=== PATIENT | male | born 1950 | race Caucasian/White ===

== ENCOUNTER 2019-11-01 03:26 | Emergency (ER) | payer MEDICARE, SELFPAY ==
--- NOTE | ~2019-11-01 | CT_ITS ---
EXAMINATION: CT facial bones wo con DATE: 11/01/2019 04:45 INDICATION: Facial pain after trauma TECHNIQUE: Computed tomography (CT) of the facial bones was performed without intravenous contrast. T he dose-length product was 351.61 mGy-cm. Automated exposure control and iterative reconstruction maverick hnique were employed. COMPARISON: None FINDINGS: There is mild right frontal and/facial soft tissue swelling with gas. No acute maxillofacia l fracture is identified. Mild mucosal thickening of the maxillary sinuses. Mandible intact. Zygomati c arches are normal. Pterygoid plates within normal limits. IMPRESSION: 1. No acute maxillofacial fracture. Reviewed, dictated and finalized at location A.
--- NOTE | ~2019-11-01 | CT_ITS ---
EXAMINATION: CT brain wo con DATE: 11/01/2019 04:46 INDICATION: Right facial swelling and syncope. Head injury. TECHNIQUE: Computed tomography (CT) of the head was performed without intravenous contrast. The dose- length product was 605.33 mGy-cm. Automated exposure control and iterative reconstruction technique w ere employed. COMPARISON: None FINDINGS: There is right facial soft tissue swelling and gas. No acute intracranial hemorrhage, infar ction, mass or mass effect. There are scattered mild periventricular and subcortical white matter rubén nges, most likely related to small vessel ischemic disease (microangiopathy). No ventriculomegaly or midline shift. Basilar cisterns are patent. Mild mucosal thickening of the ethmoid sinuses. Mastoids are pneumatized. No depressed skull fractures. IMPRESSION: 1. No acute intracranial abnormality. Reviewed, dictated and finalized at location A.
[2019-11-01 03:26] VITALS: BP 155/84; PULSE 72; RESP 16; TEMP 36.8; O2SAT 98
--- NOTE | 2019-11-01 04:23 | ECG_ITS ---
Measurements Intervals [place] Rate: 59 P: 56 NV: 141 QRS: 41 QRSD: 113 T: 16 QT: 431 QTc: 429 Interpretive Statements SINUS BRADYCARDIA CONSIDER ANTEROLATERAL INFARCT, AGE INDETERMINATE INFERIOR INFARCT, AGE INDETERMINATE ABNORMAL ECG Electronically Signed On 11-01-2019 7:42:19 CDT by Jose Manuel Nguyen D.O.
--- NOTE | 2019-11-01 04:24 | ED.FALL ---
HPI - Fall General Chief Complaint: Fall Stated Complaint: poss syncope Time Seen by Provider: 11/01/19 04:17 Source: patient Mode of arrival: EMS Limitations: no limitations History of Present Illness HPI Narrative: This patient is a 68 year old male who present for evaluation of right forehead laceration s/p fall. Patient states he started coughing due to accidently choking on coffee. As he was leaning over to cough he became dizzy and he states he woke up on the floor so he thinks he passed out. He was found to a right forehead laceration that he was able to get the bleeding under control. He has significant swelling to right side of his face. He denies vision difficulty. He denies any other pain or injuries. He takes aspirin daily . Related Data Allergies Allergy/AdvReac Type Severity Reaction Status Date / Time No Known Allergies Allergy Verified 11/01/19 06:59 Review of Systems Review of Systems: All systems reviewed & are unremarkable except as noted in HPI and below Constitutional: Constitutional: Denies chills and Denies fever(s) Eyes: Eyes: Denies change in vision and Denies photophobia Cardiovascular: Cardiovascular: Denies chest pain Respiratory: Respiratory: Reports cough, Denies dyspnea and Denies wheezing Gastrointestinal: Gastrointestinal: Denies abdominal pain, Denies nausea and Denies vomiting Neurologic: Reports dizziness, Reports syncope and Denies focal weakness PMF Past Medical History Medical History (Updated 11/01/19 @ 06:53 by Phuong Rangel MD) Hypertension Surgical History Surgical History (Updated 11/01/19 @ 04:25 by Phuong Rangel MD) H/O cardiac catheterization Social History Social History Smoking status: Smoker, status unknown Alcohol intake: current Exam Const: General: alert Orientation/consciousness: patient oriented x3 HENMT: Head: other (right lateral forehead, zygomatic hematoma with linear laceration) Mouth: Yes Normal oral and palatal mucosa present, Yes lip normal and Yes oropharynx normal Eyes: Pupils: Equal, round and reactive pupils present EOM: EOMs intact bilaterally Other: right periorbital ecchymosis Neck: Neck: normal visual inspection Chest: Chest palpation & inspection: normal inspection of the chest Resp: Effort & Inspection: normal respiratory effort, no retractions and no use of accessory muscles Auscultation: clear to auscultation bilaterally Cardio: Rate: regular rate Rhythm: regular rhythm Heart sounds: no murmurs GI: GI Palp: Yes Soft to palpation, No Tenderness to palpation present (GI) and No Guarding due to palpation present (GI) Auscultation: normal bowel sounds Neuro: General: patient oriented x3, moves all extremities and CN's II-XI intact bilaterally Extrem: General: normal to inspection Psych: Mental Status: mental status grossly normal Affect: normal affect Course Consultations Consultation #1: I Discussed case with Dr. Vela of NSGY at [facility] and recommends sending to ER and they will see patient to repeat scan. Dr. Bravo accepts in ER. Date: 11/01/19 Time: 05:52 Vital Signs Vital signs: Vital Signs Temperature 98.2 F 11/01/19 03:26 Pulse Rate 72 11/01/19 03:26 Respiratory Rate 16 11/01/19 03:26 Blood Pressure 155/84 H 11/01/19 03:26 Pulse Oximetry 98 11/01/19 03:26 Temperature 98.2 F 11/01/19 03:26 Pulse Rate 64 11/01/19 05:34 Respiratory Rate 14 11/01/19 05:34 Blood Pressure 135/66 11/01/19 05:34 Pulse Oximetry 99 11/01/19 05:34 Procedures Laceration Laceration 1: Date: 11/01/19 Time: 04:45 Site: face Side (If applicable): right Size (cm): 1.5 Description: linear ====== Skin Level ====== Skin layer closed with: dermabond ====== Subcutaneous Layer ====== ====== Muscle Layer ====== ====== Tendon Layer ====== MDM - Fall Lab Data Attestation: I reviewed the patient's
[2019-11-01 05:11] LABS: Basophils Absolute Auto 0.1 K/mm3 (0.0-0.1); Basophils Percent Auto 0.7 % (0.2-1.2); Eosinophils Absolute Auto 0.4 K/mm3 (0-0.3); Eosinophils Percent Auto 3.8 % (0-4.4); Hematocrit 42.7 % (42.0-52.0); Hemoglobin 14.8 g/dL (14.0-18.0); Immature Granulocyte Absolute 0.06 K/mm3 (0.00-0.031); Immature Granulocyte Percent A 0.5 % (0-0.5); Lymphocytes Absolute Auto 2.21 K/mm3 (0.9-3.2); Lymphocytes Percent Auto 19.4 % (18.3-44.2); Mean Corpuscular HGB Conc 34.7 g/dl (32-36); Mean Corpuscular Hemoglobin 31.5 pg (26-34); Mean Corpuscular Volume 90.9 fl (80-100); Mean Platelet Volume 9.4 fl (7.4-10.4); Monocytes Absolute Auto 0.7 K/mm3 (0.1-0.6); Monocytes Percent Auto 6.1 % (2.6-8.5); Neutrophils Absolute Auto 7.9 K/mm3 (1.3-6.7); Neutrophils Percent Auto 69.5 % (45.5-73.1); Platelet Count Result 129 k/mm3 (150-375); Red Cell Distribution Width 11.8 % (11.5-14.5); White Blood Count 11.4 K/mm3 (4.5-10.0)
[2019-11-01 05:22] LABS: INR 1.1; Prothrombin Time 13.4 Seconds (11.1-14.7)
[2019-11-01 05:23] LABS: Alanine Aminotransferase 15 U/L (4-50); Albumin Level 4.1 g/dL (3.5-5.1); Alkaline Phosphatase 37 U/L (38-126); Anion Gap 7 mmol/L (8-16); Aspartate Amino Transferase 20 U/L (17-59); Bilirubin,Total 0.8 mg/dL (0.2-1.3); Blood Urea Nitrogen 9 mg/dL (9-20); Calcium 8.7 mg/dL (8.4-10.2); Carbon Dioxide 25 mmol/L (22-30); Chloride 101 mmol/L (98-107); Estimated CRCL calculation 94 ml/min; Estimated Glomerular Filt Rate > 60; Glucose 120 mg/dL (75-110); Partial Thromboplastin Time 28.7 SECONDS (22.3-36.8); Potassium 4.6 mmol/L (3.4-5.0); Sodium 133 mmol/L (137-145)
[2019-11-01 05:34] VITALS: BP 135/66; PULSE 64; RESP 14; O2SAT 99
--- NOTE | 2019-11-01 06:36 | PC.NURSE ---
[facility] contacted for transfer eta [id number]
--- NOTE | 2019-11-01 07:00 | PC.NURSE ---
report to cody adams @ [facility]
== END 2019-11-01 07:15 | disposition short-term general hospital (02) ==
PROVIDERS: Emergency Provider General Practice; PCP Family Medicine
DX: S06.5X1A Traumatic subdural hemorrhage with loss of consciousness of 30 minutes or less, initial encounter (principal); S01.81XA Laceration without foreign body of other part of head, initial encounter; I10 Essential (primary) hypertension; R00.1 Bradycardia, unspecified; R94.31 Abnormal electrocardiogram [ECG] [EKG]; W18.39XA Other fall on same level, initial encounter
CPT/HCPCS: 12011; 36415; 70450; 70486; 80053; 85025; 85610; 85730; 93005; 99285

== ENCOUNTER 2021-10-05 10:51 | Day surgery (SDC) | payer MEDICARE, SELFPAY ==
[2021-09-28 13:50] VITALS: BMI 27.3
--- NOTE | 2021-10-05 07:24 | WPDANESEPPF ---
Anes - Initial Pre Proc Eval Procedure: Operation Date: 10/05/21 12:00 Proposed Procedures p Cataract Extraction with Lens Implant-Right Eye - Keon Izquierdo MD Date/Time: 10/05/21 07:24 Surgeon: Keon Izquierdo MD Pre Op Diagnosis: H25.12 Patient Data Age: 70 Gender: M Height: 1.8 m Weight: 89 kg Allergies Allergy/AdvReac Type Severity Reaction Status Date / Time No Known Allergies Allergy Verified 10/05/21 11:52 Home Medications Medication Instructions Recorded Confirmed Type aspirin 81 mg tablet,delayed 81 mg PO DAILY 06/28/21 09/28/21 History release (Adult Low Dose Aspirin) ezetimibe 10 mg-rosuvastatin 10 mg 1 tablet PO DAILY 06/28/21 09/28/21 History tablet metformin 1,000 mg tablet 1,000 mg PO BID 06/28/21 09/28/21 History metoprolol tartrate 25 mg tablet 25 mg PO TID 06/28/21 09/28/21 History rosuvastatin 20 mg tablet 20 mg PO DAILY 06/28/21 09/28/21 History Patient hx anesthesia problems: none Family hx anesthesia problems: none Results Review: All pre-operative results and documents have been reviewed as part of the pre-operative evaluation. [facility] Past Medical History Medical History (Updated 10/05/21 @ 07:25 by Rodríguez Mckeon DO) CAD (coronary artery disease) COPD (chronic obstructive pulmonary disease) Diabetes type 2, controlled History of heart attack Hypertension Rotator cuff tendonitis Surgical History Surgical History (Updated 07/01/21 @ 14:42 by Clementina Ozuna MA) H/O cardiac catheterization Broken Heart , 1994, Dr. Gillespie Heart attack (stent) , 1998, Dr. Barnett Social History Social History (Updated 07/01/21 @ 14:46 by Clementina Ozuna MA) Smoking packs per day: 1 Smoking cigarettes per day: 20.0 Years smoked: 30 Smoking pack-years: 30.00 Smoking status: Current every day smoker Tobacco type: cigarettes Second hand tobacco smoke exposure: No Alcohol intake: current Drinks per week: 3 Substance use: never Substance use type: does not use Living arrangements: with family Gender identity (if verbalized by the patient): Male Spiritual care concerns: No Anes - Eval Final PreProcedure Day of Procedure 10/05/21 07:24 Patient weight: overweight Heart: regular rate and rhythm Lungs: clear to auscultation and normal air movement Airway: Mallampati scale class II Neurological: alert and oriented Last oral intake: >/= 8 hours ASA classification: III Emergent: no Anesthetic plan: proceed Anesthesia type and monitoring: monitored anesthesia care and standard monitoring Results Review: All pre-operative results and documents have been reviewed as part of the pre-operative evaluation. Informed Consent: The patient's anesthetic plan and its attendant risks and benefits were discussed with the patient/family/POA. Questions were solicited and answers provided to the satisfaction of the patient/family/POA.
--- NOTE | 2021-10-05 09:47 | WPDHPUPDATE1 ---
History and Physical Update Update Date/Time: 10/05/21 09:47 History and Physical has been reviewed, including an updated exam of the patient. There are NO changes in the patient's condition. Risks, benefits, and alternatives have been discussed and questions answered. Patient agrees to proceed with procedure.
[2021-10-05 11:20] VITALS: BP 130/72; PULSE 74; RESP 20; TEMP 36.8; O2SAT 99
[2021-10-05 11:50] LABS: Glucose Point of Care 102 mg/dl (65-105)
[2021-10-05] MEDS: OFLOXACIN 0.3% OPHTH SOLN 5 ML BTL 1 DROP AFFCTD EYE (11:52)
[2021-10-05] MEDS: TETRACAINE HCL 0.5% OPHTH SOLN 4 ML BTL 1 DROP AFFCTD EYE ×3 (11:53→12:03)
[2021-10-05 12:00] VITALS: BMI 24.5
[2021-10-05] MEDS: LIDOCAINE HCL 2% JELLY 5 ML TUBE 1 APPLIC AFFCTD EYE (12:50)
[2021-10-05] MEDS: HOME MEDICATION 1 EACH AFFCTD EYE (13:00)
[2021-10-05] MEDS: LIDOCAINE HCL 1% PF INJ 5 ML VIAL 1 ML INTRAOCULA (13:01)
[2021-10-05 13:20] VITALS: BP 130/71; PULSE 66; RESP 16; O2SAT 98
--- NOTE | 2021-10-05 13:24 | W.PM.PROC2 ---
Procedure Note - Detailed Date of Procedure 10/05/21 Pre-op Diagnosis H25.12 Post-op Diagnosis Same Procedure Performed Cataract Extraction (by Phacoemulsification) and lntraocular Lens Implant RIGHT eye Surgeon Keon Izquierdo MD Description of Procedure The eye was anesthetized with topical 0.75% bupivacaine. After intravenous sedation and placement of monitors, the patient was prepped and draped in the usual sterile manner. A lid speculum was placed. A paracentesis was made, and preservative free 1% lidocaine was instilled in the anterior chamber. The anterior chamber was then filled with Viscoat viscoelastic. A kobi keratome was used to create the wound. Continuous tear anterior capsulotomy was performed. The lens was hydro dissected before being removed with phacoemulsification. The remaining lenticular cortex was removed with aspiration. The capsular bag was polished and filled with viscoelastic material. An intraocular lens was chosen, inspected, irrigated and placed within the capsular bag where it was seen to be centered and stable. The viscoelastic material was aspirated. The wound was closed and found to be watertight. Ciloxan drops were placed in the eye. The speculum was removed. A Muñoz shield was applied. The patient tolerated the procedure well and left the operating room in satisfactory condition. Implants See chart Complications None Condition Stable Disposition Same day
--- NOTE | 2021-10-05 13:27 | WPDANESPN ---
Anes - Prog Note Post-Op Date/Time: 10/05/21 13:27 Vital Signs: Last Vital Signs Temp 36.8 C 10/05/21 11:20 Pulse 74 10/05/21 11:20 Resp 20 10/05/21 11:20 BP 130/72 10/05/21 11:20 Pulse Ox 99 10/05/21 11:20 O2 Del Method Room Air 10/05/21 11:20 Pain Score (VAS): 0 10/05/21 11:47 POC Capillary Glucose 102 Patient Feedback: Patient satisfied with anesthetic care.
[2021-10-05] MEDS: acetaZOLAMIDE TAB 250 MG TABLET PO (13:30)
--- NOTE | 2021-11-09 10:19 | WPDHPUPDATE1 ---
History and Physical Update Update Date/Time: 11/09/21 10:19 History and Physical has been reviewed, including an updated exam of the patient. There are NO changes in the patient's condition. Risks, benefits, and alternatives have been discussed and questions answered. Patient agrees to proceed with procedure. Physical exam not done on the day of the procedure.
== END 2021-10-05 13:36 | disposition home or self-care (01) ==
PROVIDERS: PCP Family Medicine; Visit Provider Student in an Organized Health Care Education/Training Program
PROC: (CPT 66983; principal; 2021-10-05 12:00)
DX: H25.11 Age-related nuclear cataract, right eye (principal)
CPT/HCPCS: 66984

== ENCOUNTER 2021-11-02 10:53 | Day surgery (SDC) | payer MEDICARE, SELFPAY ==
--- NOTE | 2021-11-01 20:58 | WPDANESEPPF ---
Anes - Initial Pre Proc Eval Procedure: Operation Date: 11/02/21 12:00 Proposed Procedures p Cataract Extraction with Lens Implant-Left Eye - Keon Izquierdo MD <Rodríguez Mckeon DO - Last Filed: 11/14/21 15:40> Date/Time: 11/01/21 20:58 <Rodríguez Mckeon DO - Last Filed: 11/14/21 15:40> Surgeon: Keon Izquierdo MD <Rodríguez Mckeon, DO - Last Filed: 11/14/21 15:40> Pre Op Diagnosis: H25.12 <Rodríguez Mckeon DO - Last Filed: 11/14/21 15:40> Patient Data Age: 70 Gender: M Height: Weight: <Rodríguez Mckeon DO - Last Filed: 11/14/21 15:40> Allergies Allergy/AdvReac Type Severity Reaction Status Date / Time No Known Allergies Allergy Verified 11/02/21 11:18 <Rodríguez Mckeon DO - Last Filed: 11/14/21 15:40> Home Medications Medication Instructions Recorded Confirmed Type aspirin 81 mg tablet,delayed 81 mg PO DAILY 06/28/21 11/02/21 History release (Adult Low Dose Aspirin) ezetimibe 10 mg-rosuvastatin 10 mg 1 tablet PO DAILY 06/28/21 11/02/21 History tablet metformin 1,000 mg tablet 1,000 mg PO BID 06/28/21 11/02/21 History metoprolol tartrate 25 mg tablet 25 mg PO TID 06/28/21 11/02/21 History rosuvastatin 20 mg tablet 20 mg PO DAILY 06/28/21 11/02/21 History <Rodríguez Mckeon DO - Last Filed: 11/14/21 15:40> Patient hx anesthesia problems: none <Maximo Stratton MD - Last Filed: 11/02/21 11:29> Family hx anesthesia problems: none <Maximo Stratton MD - Last Filed: 11/02/21 11:29> Results Review: All pre-operative results and documents have been reviewed as part of the pre-operative evaluation. <Rodríguez Mckeon DO - Last Filed: 11/14/21 15:40> [facility] Past Medical History Medical History: Medical History CAD (coronary artery disease) COPD (chronic obstructive pulmonary disease) Diabetes type 2, controlled History of heart attack Hypertension Rotator cuff tendonitis <Rodríguez Mckeon DO - Last Filed: 11/14/21 15:40> Surgical History Surgical History: Surgical History H/O cardiac catheterization Broken Heart , 1994, Dr. Gillespie Heart attack (stent) , 1998, Dr. Barnett <Rodríguez Mckeon, DO - Last Filed: 11/14/21 15:40> Social History Social History: Social History Smoking packs per day: 1 Smoking cigarettes per day: 20.0 Years smoked: 30 Smoking pack-years: 30.00 Smoking status: Current every day smoker Tobacco type: cigarettes Second hand tobacco smoke exposure: No Alcohol intake: current Drinks per week: 3 Substance use: never Substance use type: does not use Living arrangements: with family Gender identity (if verbalized by the patient): Male Spiritual care concerns: No <Rodríguez Mckeon DO - Last Filed: 11/14/21 15:40> Anes - Eval Final PreProcedure Day of Procedure 11/01/21 20:58 <Rodríguez Mckeon DO - Last Filed: 11/14/21 15:40> Patient weight: obese <Rodríguez Mckeon DO - Last Filed: 11/14/21 15:40> Heart: regular rate and rhythm <Rodríguez Mckeon DO - Last Filed: 11/14/21 15:40> Lungs: clear to auscultation and normal air movement <Rodríguez Mckeon DO - Last Filed: 11/14/21 15:40> Airway: Mallampati scale class II <Rodríguez Mckeon DO - Last Filed: 11/14/21 15:40> Neurological: alert and oriented <Rodríguez Mckeon DO - Last Filed: 11/14/21 15:40> Last oral intake: >/= 8 hours <Rodríguez Mckeon DO - Last Filed: 11/14/21 15:40> ASA classification: III <Rodríguez Mckeon DO - Last Filed: 11/14/21 15:40> Emergent: no <Rodríguez Mckeon DO - Last Filed: 11/14/21 15:40> Anesthetic plan: proceed <Rodríguez
--- NOTE | 2021-11-02 09:44 | WPDHPUPDATE1 ---
History and Physical Update Update Date/Time: 11/02/21 09:44 History and Physical has been reviewed, including an updated exam of the patient. There are NO changes in the patient's condition. Risks, benefits, and alternatives have been discussed and questions answered. Patient agrees to proceed with procedure.
[2021-11-02 11:15] VITALS: BP 100/64; PULSE 82; RESP 16; TEMP 36.9; O2SAT 98
[2021-11-02] MEDS: TETRACAINE HCL 0.5% OPHTH SOLN 4 ML BTL 1 DROP AFFCTD EYE ×3 (11:20→11:30)
[2021-11-02] MEDS: OFLOXACIN 0.3% OPHTH SOLN 5 ML BTL 1 DROP AFFCTD EYE (11:20)
[2021-11-02 11:35] LABS: Glucose Point of Care 95 mg/dl (65-105)
[2021-11-02 11:40] VITALS: BMI 24.5
[2021-11-02] MEDS: LIDOCAINE HCL 2% JELLY 5 ML TUBE 1 APPLIC AFFCTD EYE (12:31)
[2021-11-02] MEDS: LIDOCAINE HCL 1% PF INJ 5 ML VIAL 1 ML INTRAOCULA (12:38)
[2021-11-02] MEDS: HOME MEDICATION 1 EACH AFFCTD EYE (12:50)
[2021-11-02] MEDS: NEOMYCIN/POLYMYXIN/DEXAMETH OP OINT 3.5 GM TUBE 1 APPLIC AFFCTD EYE (12:50)
[2021-11-02 12:54] VITALS: BP 110/68; PULSE 78; RESP 16; O2SAT 99
--- NOTE | 2021-11-02 12:54 | W.PM.PROC2 ---
Procedure Note - Detailed Date of Procedure 11/02/21 Pre-op Diagnosis H25.12 Post-op Diagnosis Same Procedure Performed Cataract Extraction (by Phacoemulsification) and lntraocular Lens Implant LEFT eye Surgeon Keon Izquierdo MD Description of Procedure The eye was anesthetized with topical 0.75% bupivacaine. After intravenous sedation and placement of monitors, the patient was prepped and draped in the usual sterile manner. A lid speculum was placed. A paracentesis was made, and preservative free 1% lidocaine was instilled in the anterior chamber. The anterior chamber was then filled with Viscoat viscoelastic. A kobi keratome was used to create the wound. Continuous tear anterior capsulotomy was performed. The lens was hydro dissected before being removed with phacoemulsification. The remaining lenticular cortex was removed with aspiration. The capsular bag was polished and filled with viscoelastic material. An intraocular lens was chosen, inspected, irrigated and placed within the capsular bag where it was seen to be centered and stable. The viscoelastic material was aspirated. The wound was closed and found to be watertight. Ciloxan drops were placed in the eye. The speculum was removed. A Muñoz shield was applied. The patient tolerated the procedure well and left the operating room in satisfactory condition. Implants See chart Complications None Condition Stable Disposition Same day
--- NOTE | 2021-11-02 13:08 | WPDANESPN ---
Anes - Prog Note Post-Op Date/Time: 11/02/21 13:08 Cardiovascular status: normal Respiratory status: normal Airway patency: baseline Mental status: baseline Post-Op hydration status: normal Vital Signs: Last Vital Signs Temp 36.9 C 11/02/21 11:15 Pulse 82 11/02/21 11:15 Resp 16 11/02/21 11:15 BP 100/64 11/02/21 11:15 Pulse Ox 98 11/02/21 11:15 O2 Del Method Room Air 11/02/21 11:15 Pain Score (VAS): 0 11/02/21 11:33 POC Capillary Glucose 95 Patient Feedback: Patient satisfied with anesthetic care.
== END 2021-11-02 13:22 | disposition home or self-care (01) ==
PROVIDERS: PCP Family Medicine; Visit Provider Student in an Organized Health Care Education/Training Program
PROC: (CPT 66983; principal; 2021-11-02 12:00)
DX: H25.12 Age-related nuclear cataract, left eye (principal)
CPT/HCPCS: 66984

== ENCOUNTER 2023-01-17 01:31 | Day surgery (SDC) | payer MEDICARE, SELFPAY ==
[2023-01-02 14:33] VITALS: BMI 26.3
--- NOTE | 2023-01-15 09:06 | SUR.PREOP ---
Patient called regarding upcoming procedure. Reviewed preop instructions, appointment times, and procedure prep.
--- NOTE | 2023-01-16 13:34 | PM.HPGS ---
History of Present Illness History of Present Illness Consent: Risks, benefits, and alternatives have been discussed and questions answered. Patient agrees to proceed with procedure. Chief complaint: hx colon polyps Narrative: Dean Tsai is a 72 year old male referred for colon cancer screening. He has history of polyps. Review of Systems Review of Systems: All systems reviewed & are unremarkable except as noted in HPI and below PMFSH Past Medical History Medical History CAD (coronary artery disease) COPD (chronic obstructive pulmonary disease) Diabetes type 2, controlled History of heart attack Hypertension Rotator cuff tendonitis Surgical History Surgical History H/O cardiac catheterization Broken Heart , 1994, Dr. Gillespie Heart attack (stent) , 1998, Dr. Barnett Social History Social History Smoking packs per day: 1 Smoking cigarettes per day: 20.0 Years smoked: 50 Smoking pack-years: 50.00 Smoking status: Current every day smoker Tobacco type: cigarettes Second hand tobacco smoke exposure: No Alcohol intake: current Drinks per week: 6 Substance use: never Substance use type: does not use Living arrangements: with family Occupation/Education: retired Gender identity (if verbalized by the patient): Male Spiritual care concerns: No Meds Home Medications and Allergies Home Medications Medication Instructions Recorded Confirmed Type aspirin 81 mg tablet,delayed 81 mg PO DAILY 06/28/21 01/17/23 History release (Adult Low Dose Aspirin) metformin 1,000 mg tablet 1,000 mg PO BID 06/28/21 01/17/23 History metoprolol tartrate 25 mg tablet 12.5 mg PO TID 06/28/21 01/17/23 History ezetimibe 10 mg tablet 10 mg PO DAILY 01/02/23 01/17/23 History rosuvastatin 20 mg tablet 20 mg PO DAILY 01/02/23 01/17/23 History Allergies Allergy/AdvReac Type Severity Reaction Status Date / Time No Known Allergies Allergy Verified 01/17/23 06:18 Exam Const: General: alert Orientation/consciousness: patient oriented x3 Resp: Auscultation: clear to auscultation bilaterally Cardio: Rhythm: regular rhythm GI: GI Palp: Yes Soft to palpation and No Tenderness to palpation present (GI) Neuro: General: patient oriented x3 Assessment and Plan Assessment and plan (1) Colon cancer screening: Code(s): Z12.11 - Encounter for screening for malignant neoplasm of colon Status: Acute Assessment and Plan: Colonoscopy with possible biopsy or polypectomy or cautery or injection of substances.
[2023-01-17 06:20] VITALS: BP 138/63; PULSE 66; RESP 18; TEMP 36.1; O2SAT 100; BMI 24.8
[2023-01-17] MEDS: LACTATED RINGERS 1,000 ML 150 ML IV CONT (06:23)
[2023-01-17 06:39] LABS: Glucose Point of Care 97 mg/dl (65-105)
--- NOTE | 2023-01-17 07:20 | WPDANESEPPF ---
Anes - Initial Pre Proc Eval Procedure: Operation Date: 01/17/23 07:30 Proposed Procedures p Screening Colonoscopy - Jose Luis Alanis MD Date/Time: 01/17/23 07:20 Surgeon: Jose Luis Alanis MD Pre Op Diagnosis: hx colon polyps Patient Data Age: 72 Gender: M Height: 1.83 m Weight: 83.2 kg Last Vital Signs Temp 96.9 F L 01/17/23 06:20 Pulse 66 01/17/23 06:20 Resp 18 01/17/23 06:20 BP 138/63 01/17/23 06:20 Pulse Ox 100 01/17/23 06:20 O2 Del Method Room Air 01/17/23 06:20 Allergies Allergy/AdvReac Type Severity Reaction Status Date / Time No Known Allergies Allergy Verified 01/17/23 06:18 Home Medications Medication Instructions Recorded Confirmed Type aspirin 81 mg tablet,delayed 81 mg PO DAILY 06/28/21 01/17/23 History release (Adult Low Dose Aspirin) metformin 1,000 mg tablet 1,000 mg PO BID 06/28/21 01/17/23 History metoprolol tartrate 25 mg tablet 12.5 mg PO TID 06/28/21 01/17/23 History ezetimibe 10 mg tablet 10 mg PO DAILY 01/02/23 01/17/23 History rosuvastatin 20 mg tablet 20 mg PO DAILY 01/02/23 01/17/23 History Laboratory Tests 01/17/23 06:37 POC Capillary Glucose 97 mg/dl (65-105) Patient hx anesthesia problems: none Family hx anesthesia problems: none Results Review: All pre-operative results and documents have been reviewed as part of the pre-operative evaluation. [facility] Past Medical History Medical History CAD (coronary artery disease) COPD (chronic obstructive pulmonary disease) Diabetes type 2, controlled History of heart attack Hypertension Rotator cuff tendonitis Surgical History Surgical History H/O cardiac catheterization Broken Heart , 1994, Dr. Gillespie Heart attack (stent) , 1998, Dr. Barnett Social History Social History Smoking packs per day: 1 Smoking cigarettes per day: 20.0 Years smoked: 50 Smoking pack-years: 50.00 Smoking status: Current every day smoker Tobacco type: cigarettes Second hand tobacco smoke exposure: No Alcohol intake: current Drinks per week: 6 Substance use: never Substance use type: does not use Living arrangements: with family Occupation/Education: retired Gender identity (if verbalized by the patient): Male Spiritual care concerns: No Anes - Eval Final PreProcedure Day of Procedure 01/17/23 07:20 Patient weight: normal Heart: regular rate and rhythm Lungs: clear to auscultation Airway: Mallampati scale class II Neurological: alert and oriented Last oral intake: >/= 8 hours ASA classification: III Emergent: no Anesthetic plan: proceed Anesthesia type and monitoring: general GIVS and standard monitoring Results Review: All pre-operative results and documents have been reviewed as part of the pre-operative evaluation. Informed Consent: The patient's anesthetic plan and its attendant risks and benefits were discussed with the patient/family/POA. Questions were solicited and answers provided to the satisfaction of the patient/family/POA.
[2023-01-17 07:49] VITALS: BP 93/37; PULSE 79; RESP 23; O2SAT 100
[2023-01-17 07:59] VITALS: BP 116/61; PULSE 62; RESP 17; O2SAT 100
[2023-01-17 08:09] VITALS: BP 123/59; PULSE 60; RESP 22; O2SAT 100
== END 2023-01-17 08:20 | disposition home or self-care (01) ==
PROVIDERS: PCP Family Medicine; Visit Provider Internal Medicine Gastroenterology
PROC: 0DJD8ZZ Inspection of Lower Intestinal Tract, Via Natural or Artificial Opening Endoscopic (ICD-10-PCS; CPT 45378; principal; 2023-01-17 07:30)
DX: Z12.11 Encounter for screening for malignant neoplasm of colon (principal); J44.9 Chronic obstructive pulmonary disease, unspecified; E11.9 Type 2 diabetes mellitus without complications; I10 Essential (primary) hypertension; I25.10 Atherosclerotic heart disease of native coronary artery without angina pectoris; I25.2 Old myocardial infarction; F17.210 Nicotine dependence, cigarettes, uncomplicated; Z95.5 Presence of coronary angioplasty implant and graft; Z79.82 Long term (current) use of aspirin; Z79.84 Long term (current) use of oral hypoglycemic drugs; Z86.010 Personal history of colon polyps
CPT/HCPCS: G0105; 82948; J7120

== ENCOUNTER 2023-10-16 14:18 | Emergency (ER) | payer MEDICARE, SELFPAY ==
--- NOTE | ~2023-10-16 | XR_ITS ---
XR ankle RT min 3V 10/16/2023 15:13 Indication: Right ankle pain after injury Procedure: 4 views right ankle Comparison: No prior studies for comparison. Findings: Moderate diffuse soft tissue swelling. Ankle mortise intact. There is a comminuted nondispl aced extra-articular fracture of the calcaneus. Impression: 1: Nondisplaced comminuted extra-articular fracture of the calcaneus. Consider correlation with CT. Reviewed, dictated and finalized at location B. Impression: 1: Nondisplaced comminuted extra-articular fracture of the calcaneus. Consider correlation with CT.
[2023-10-16 14:27] VITALS: BP 145/77; PULSE 76; RESP 16; TEMP 36.6; O2SAT 100
--- NOTE | 2023-10-16 14:31 | ED.LOWEXIN ---
HPI - Extremity Injury (Lower) General Chief Complaint: Extremity Injury, Lower Stated Complaint: right ankle injury Time Seen by Provider: 10/16/23 14:30 Focused HPI: GENERAL: Well-appearing, well-nourished, and in no acute distress. HEAD: Normocephalic, atraumatic. CHEST: Clear to auscultation. No respiratory distress. HEART: Regular rate and rhythm. NEURO: Alert and oriented x3. Patient screened in triage and initial orders placed. Additional care and disposition to be based upon diagnostic testing and treatment. Source: patient Mode of arrival: ambulatory Limitations: no limitations Related Data Home Medications Medication Instructions Recorded Confirmed aspirin 81 mg tablet,delayed 81 mg PO DAILY 06/28/21 01/17/23 release (Adult Low Dose Aspirin) metformin 1,000 mg tablet 1,000 mg PO BID 06/28/21 01/17/23 metoprolol tartrate 25 mg tablet 12.5 mg PO TID 06/28/21 01/17/23 ezetimibe 10 mg tablet 10 mg PO DAILY 01/02/23 01/17/23 rosuvastatin 20 mg tablet 20 mg PO DAILY 01/02/23 01/17/23 Allergies Allergy/AdvReac Type Severity Reaction Status Date / Time No Known Allergies Allergy Verified 01/17/23 06:18 Review of Systems Review of Systems: CONSTITUTIONAL: Denies fever, chills, or sweats. EYES: Denies visual changes, redness, or discharge. ENT: Denies rhinorrhea, congestion, sore throat, or otalgia. CARDIOVASCULAR: Denies chest pain, palpitations, or edema. RESPIRATORY: Denies cough or dyspnea. GASTROINTESTINAL: Denies abdominal pain, nausea, vomiting, or diarrhea. GENITOURINARY: Denies dysuria or hematuria. SKIN: Denies rash or itching. MUSCULOSKELETAL: Denies back pain or myalgia. NEUROLOGIC: Denies headache, numbness, or weakness. PSYCHIATRIC: Denies anxiety or depression. FOR[facility]LY [facility] Past Medical History Medical History CAD (coronary artery disease) COPD (chronic obstructive pulmonary disease) Diabetes type 2, controlled History of heart attack Hypertension Rotator cuff tendonitis Surgical History Surgical History H/O cardiac catheterization Broken Heart , 1994, Dr. Gillespie Heart attack (stent) , 1998, Dr. Barnett Social History Social History Smoking packs per day: 1 Smoking cigarettes per day: 20.0 Years smoked: 50 Smoking pack-years: 50.00 Smoking status: Current every day smoker Tobacco type: cigarettes Second hand tobacco smoke exposure: No Alcohol intake: current Drinks per week: 6 Substance use: never Substance use type: does not use Living arrangements: with family Occupation/Education: retired Gender identity (if verbalized by the patient): Male Spiritual care concerns: No Comments At the time of my signature, I reviewed and agree with the nursing past medical, surgical, social, and family history. There is no relevant family history pertinent to the patient complaint. Exam Narrative: General: Well-developed, well nourished, in no apparent distress Head: Normocephalic, atraumatic. Cardio: Regular rate and rhythm, s1 and s2 normal, no murmur appreciated. Resp: Clear to auscultation bilaterally, no rhonchi, rales, wheezing or rubs. Musculoskeletal: No deformity,tender to palpation over the calcaneus, mild swelling over the calcaneus and the dorsal foot, grossly normal range of motion, muscle strength strong and equal, peripheral pulse strong, no edema, no cyanosis, normal gait and station Course Course Emergency Course: Portions of this record may have been created with voice recognition software. Vital Signs Vital signs: Vital Signs Temperature 36.6 C 10/16/23 14:27 Pulse Rate 76 10/16/23 14:27 Respiratory Rate 16 10/16/23 14:27 Blood Pressure 145/77 H 10/16/23 14:27 Pulse Oximetry 100 10/16/23 14:27 Oxygen Delivery Room Air
--- NOTE | 2023-10-16 15:56 | PC.NURSE ---
Right heel padded with fluff gauze, alcides wrap for compression & crutch training completed. Pt & voice understanding.
[2023-10-16 15:58] VITALS: BP 140/70; PULSE 74; RESP 16; TEMP 36.8; O2SAT 100
== END 2023-10-16 16:01 | disposition home or self-care (01) ==
LOC: ANHED 15:54
PROVIDERS: Emergency Provider Nurse Practitioner Family; PCP Family Medicine
DX: S92.054A Nondisplaced other extraarticular fracture of right calcaneus, initial encounter for closed fracture (principal); I25.10 Atherosclerotic heart disease of native coronary artery without angina pectoris; I25.2 Old myocardial infarction; I10 Essential (primary) hypertension; E11.9 Type 2 diabetes mellitus without complications; J44.9 Chronic obstructive pulmonary disease, unspecified; F17.210 Nicotine dependence, cigarettes, uncomplicated; W11.XXXA Fall on and from ladder, initial encounter
CPT/HCPCS: 73610; 99284

== ENCOUNTER 2024-08-23 10:46 | Emergency (ER) | payer MEDICARE, SELFPAY ==
[2024-08-23 10:50] VITALS: BP 134/58; PULSE 65; RESP 18; TEMP 36.4; O2SAT 100
--- NOTE | 2024-08-23 11:47 | ED_ITS ---
HPI - General Adult General Chief complaint: Wound/Laceration Stated complaint: dropped knife in his foot Time Seen by Provider: 08/23/24 11:17 History of Present Illness HPI narrative: This is a 73-year-old male presenting with a foot laceration. He dropped a scout professional sports knife on his left foot this morning. He has a 1 cm laceration to top his foot. No weakness the foot. No other injuries. Unknown last tetanus. Related Data Home Medications ?Medication ?Instructions ?Recorded ?Confirmed ?Last Taken ?Type aspirin 81 mg tablet,delayed 81 mg PO DAILY 06/28/21 11/27/23 1 Day Ago History release (Adult Low Dose Aspirin) ~11/01/21 metformin 1,000 mg tablet 1,000 mg PO BID 06/28/21 11/27/23 1 Day Ago History ~11/01/21 metoprolol tartrate 25 mg tablet 12.5 mg PO TID 06/28/21 11/27/23 01/17/23 History ezetimibe 10 mg tablet 10 mg PO DAILY 01/02/23 11/27/23 Unknown History rosuvastatin 20 mg tablet 20 mg PO DAILY 01/02/23 11/27/23 01/16/23 History Allergies Allergy/AdvReac Type Severity Reaction Status Date / Time No Known Allergies Allergy Verified 08/23/24 10:52 [facility] Past Medical History Medical History CAD (coronary artery disease) COPD (chronic obstructive pulmonary disease) Diabetes type 2, controlled History of heart attack Hypertension Rotator cuff tendonitis Surgical History Surgical History H/O cardiac catheterization Broken Heart, 1994, Dr. Gillespie Heart attack (stent), 1998, Dr. Barnett Social History Social History (Updated 11/27/23 @ 08:08 by SIMONE Fish) Smoking packs per day: 1 Smoking cigarettes per day: 20.0 Years smoked: 50 Smoking pack-years: 50.00 Smoking status: Current every day smoker Tobacco type: cigarettes Second hand tobacco smoke exposure: No Alcohol intake: current Drinks per week: 6 Substance use: never Substance use type: does not use Do You Feel Safe in your Home?: Yes Lack of Transportation: No Lack of Food: Never True Current Housing: I Have Housing Concerned About Future Housing: Decline to Answer Difficulty Paying Gas/Electric Bills: Decline to Answer Difficulty Paying for Meds: Decline to Answer Currently Unemployed: Decline to Answer Education: Decline to Answer Difficulty w/ Childcare or Family Care: Decline to Answer Living arrangements: with family Occupation/Education: retired 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 Head: atraumatic. EYES: EOMI, NOSE: Atraumatic NECK: Trachea midline RESPIRATORY: No increased rate of breathing CARDIOVASCULAR: RRR, ABDOMINAL: Non-distended MUSCULOSKELETAl: No obvious deformities NEURO: Alert. Moving 4/4 extremities SKIN:: 1 cm laceration to dorsal aspect of the left foot just proximal to the base of the great toe and 2nd phalanx. No involvement of the deeper structures. No functional deficits toe. PSYCHIATRIC: Normal affect Course Vital Signs Vital signs: Vital Signs Temperature 97.6 F 08/23/24 10:50 Pulse Rate 65 08/23/24 10:50 Respiratory Rate 18 08/23/24 10:50 Blood Pressure 134/58 L 08/23/24 10:50 Pulse Oximetry 100 08/23/24 10:50 Oxygen Delivery Room Air 08/23/24 10:50 Temperature 97.6 F 08/23/24 10:50 Pulse Rate 65 08/23/24 10:50 Respiratory Rate 18 08/23/24 10:50 Blood Pressure 134/58 L 08/23/24 10:50 Pulse Oximetry 100 08/23/24 10:50 Oxygen Delivery Room Air 08/23/24 10:50 Procedures Laceration Laceration 1: Date: 08/23/24 Time: 12:16 Site: lower extremity Side (If applicable): left Size (cm): 1 Description: linear Depth: simple, single layer Local Anesthetic: bupivacaine 0.25% Amount of anesthesia used (mL): 3 Pre-repair: wound explored and irrigated extensively ====== Skin Level ====== Skin layer closed with: nylon Size (cm): 4-0 Number of sutures: 3 Technique: simple, interrupted ====== Subcutaneous Layer ====== ====== Muscle Layer ====== ====== Tendon Layer ====== Medical Decision Making MDM Narrative Medical decision making narrative: -Course: 73-year-old male presenting with a laceration to the top his foot. This was repaired. Patient discharged primary care follow-up. Return in 10-14 days for suture removal. Return signs of infection. Given a Tdap booster. Vital Signs Vital Signs: Vital Signs Temperature 97.6 F 08/23/24 10:50 Pulse Rate 65 08/23/24 10:50 Respiratory Rate 18 08/23/24 10:50 Blood Pressure 134/58 L 08/23/24 10:50 Pulse Oximetry 100 08/23/24 10:50 Oxygen Delivery Room Air 08/23/24 10:50 Temperature 97.6 F 08/23/24 10:50 Pulse Rate 65 08/23/24 10:50 Respiratory Rate 18 08/23/24 10:50 Blood Pressure 134/58 L 08/23/24 10:50 Pulse Oximetry 100 08/23/24 10:50 Oxygen Delivery Room Air 08/23/24 10:50 Discharge Plan Discharge Clinical Impression: Laceration Patient Disposition: Home Condition: Stable Instructions: Antibiotic Form, Care For Your Stitches (ED) Additional Instructions: You were seen in the emergency department for laceration. This was repaired. Please follow-up with your primary care physician in 10-14 days for suture removal. Develop any new or worsening symptoms such as signs of infection, redness swelling increased pain return to the ED for re-evaluation. Patient Language: Canadian Prescriptions: No Action aspirin [Adult Low Dose Aspirin] 81 mg tablet,delayed release (DR/EC) 81 mg PO DAILY metoprolol tartrate 25 mg tablet 12.5 mg PO TID metformin 1,000 mg tablet 1,000 mg PO BID ezetimibe 10 mg Tablet 10 mg PO DAILY rosuvastatin 20 mg Tablet 20 mg PO DAILY Follow-up/Referrals: Mohit,MD Francisco [Primary Care Provider] -
[2024-08-23] MEDS: TETANUS,DIPHTHERIA,AC PERTUSSIS ADULT (0.5 ML) BOOSTRIX IM (12:29)
== END 2024-08-23 12:39 | disposition home or self-care (01) ==
PROVIDERS: Emergency Provider Emergency Medicine; PCP Family Medicine
DX: S91.312A Laceration without foreign body, left foot, initial encounter (principal); Z23 Encounter for immunization; I25.10 Atherosclerotic heart disease of native coronary artery without angina pectoris; I25.2 Old myocardial infarction; I10 Essential (primary) hypertension; J44.9 Chronic obstructive pulmonary disease, unspecified; E11.9 Type 2 diabetes mellitus without complications; F17.210 Nicotine dependence, cigarettes, uncomplicated; Z79.82 Long term (current) use of aspirin; Z79.84 Long term (current) use of oral hypoglycemic drugs; Z79.899 Other long term (current) drug therapy; W26.0XXA Contact with knife, initial encounter
CPT/HCPCS: 12001; 90471; 90715; 99282

== ENCOUNTER 2024-10-31 06:33 | Outpatient (CLI) | payer MEDICARE, SELFPAY ==
--- NOTE | ~2024-10-31 | CT_ITS ---
EXAMINATION: CT lung screening DATE: 10/31/2024 06:56 INDICATION: Cigarette smoker TECHNIQUE: Computed tomography (CT) of the chest was performed without intravenous contrast. Additional 3D reconstructions utilizing coronal maximum intensity projection (MIP) were performed. Automated exposure control and iterative reconstruction technique were employed. The dose-length product was 10 1.77 mGy-cm. COMPARISON: None FINDINGS: Normal anatomic variant azygos lobe and fissure. 3 mm nodule in the right middle lobe along the major fissure. Calcified nodules in the left lower lobe consistent with old granulomatous disease. Small metallic BBs, one in the posterior right lower lobe and the second in the soft tissues along the poste rior margin of the left 10th rib. Mild discoid atelectasis in the lingula. No pneumonia, pulmonary edema or pleural effusion. Heart size normal. Abscess chronic coronary artery calcification. No pericardial effusion. Thoracic aorta is normal in caliber. No pathologically enlarged thoracic lymphadenopathy. Visualized upper abdomen is unremarkable. Mild thoracic spondylosis. Mild chronic appearing superior endplate compression fracture at T10. IMPRESSION: 1. . Lung-RADS category 2: Benign appearance or behavior. Continue annual screening with noncontrast low-dose chest CT in 12 months. Reviewed, dictated and finalized at location A. IMPRESSION: 1. . Lung-RADS category 2: Benign appearance or behavior. Continue annual scree priyank with noncontrast low-dose chest CT in 12 months.
== END 2024-10-31 06:34 | disposition home or self-care (01) ==
PROVIDERS: PCP Family Medicine; Visit Provider Family Medicine
DX: Z12.2 Encounter for screening for malignant neoplasm of respiratory organs (principal); F17.210 Nicotine dependence, cigarettes, uncomplicated
CPT/HCPCS: 71271

== ENCOUNTER 2025-02-06 02:25 | Day surgery (SDC) | payer MEDICARE, SELFPAY ==
[2025-02-05 13:49] VITALS: BMI 24.2
[2025-02-06] VITALS (20 sets, daily range): BP systolic 114–153; BP diastolic 52–103; PULSE 60–71; RESP 12–18; TEMP 36.5; O2SAT 97–100; BMI 23.1
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
--- OUTSIDE RECORDS SUMMARY | 2025-02-06 02:28 | XMS_ITS | Encounter Summary ---
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 [address] [place] [phone] Kwan Barnett MD [address] [facility] [address] [place], [place] [id number] MEDICATION REFILL Social History Tobacco Use Types Packs/Day Years Used Date Smoking Tobacco: Some Days Cigarettes 0.5 25 Smokeless Tobacco: Never Comments:quit completely for 15 years Alcohol Use Standard Drinks/Week Comments Not Asked 0 (1 standard drink = 0.6 oz pur e alcohol) Sex and Gender Information Value Date Recorded Sex Assigned at Not on file 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 Gender Identity Not on file Sexual Orientation Not on file documented as of this encounter Plan of Treatment Not on file documented as of this encounter Visit Diagnoses Not on filedocumented in this encounter Care Teams Blood Bank Booking Clerk Relationship Specialty Start Date End Date Felix Toney MD PCP - General Internal Medicine 05/28/14 01/27/20 Francisco Rueda MD [address] [place] [address] PCP - General Family Medicine 01/28/20 Kwan Barnett MD Approver Cardiovascular Disease 07/09/15 Kwan Barnett MD [address] [facility] [address] [place] [address] [facility] Cardiovascular Disease 01/29/24 documented as of this encounter
--- OUTSIDE RECORDS SUMMARY | 2025-02-06 02:28 | XMS_ITS | Encounter Summary ---
Author Organization [facility] Address [address] [address] Care Team Providers Care Cylinder Machine Operator Name Role Phone Felix Toney MD Primary Care Provider + [phone] Kwan Barnett MD Unavailable Francisco Rueda MD Primary Care Provider [phone] Kwan Barnett MD Unavailable [phone] Encounter Details Date Type Department Care Team (Late st Contact Info) Description 03/20/2016 [facility] Outpatient Visit [facility] [address] [place] [address] [address] [place], [place] [id number] Kwan Barnett MD [address] [place] [address] [facility] [address] [place] [address] Social History Tobacco Use Types Packs/Day Years Used Date Smoking Tobacco: Some Days Cigarettes 0.5 25 Smokeless Tobacco: Never Comments:quit completely for 15 years Alcohol Use Standard Drinks/Week Comments Not Asked 0 (1 standard drink = 0.6 oz pur e alcohol) Sex and Gender Information Value Date Recorded Sex Assigned at Not on file 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 Gender Identity Not on file Sexual Orientation Not on file documented as of this encounter Plan of Treatment Not on file documented as of this encounter Visit Diagnoses Not on filedocumented in this encounter Care Teams Cylinder Machine Operator Relationship Specialty Start Date End Date Felix Toney MD PCP - General Internal Medicine 05/28/14 01/27/20 Francisco Rueda MD [address] [place] [phone] PCP - General Family Medicine 01/28/20 Kwan Barnett MD Aviculturist Cardiovascular Disease 07/09/15 Kwan Barnett MD [address] [facility] [address] [place] [address] Aviculturist Cardiovascular Disease 01/29/24 documented as of this encounter
--- OUTSIDE RECORDS SUMMARY | 2025-02-06 02:28 | XMS_ITS | Clinical Summary ---
Author Organization [facility] [address] [facility] [address] Address [address] [place] [address] Care Team Providers Care Manager Reporting Name Role Phone Francisco Rueda MD Primary Care Provider [phone] Allergies No known active allergies Medications aspirin 81 mg enteric coated tablet Take 1 tablet (81 mg total) by mouth daily 07/25/2018 Active metoprolol tartrate (LOPRESSOR) 50 mg immediate release tablet Take 37.5 mg by mouth 2 (two) times a day 06/11/2024 Active nitroglycerin (NITROSTAT) 0.4 mg SL tablet DISSOLVE 1 TABLET UNDER THE TONGUE EVERY 5 MINUTES NEEDED FOR ANGINA. MAXIMUM 3 DOSES IN 15 MINUTES 01/23/2023 Active rosuvastatin (CRESTOR) 20 mg tablet Take 1 tablet (20 mg total) by mouth daily 11/25/2024 Active ezetimibe (ZETIA) 10 mg tablet Take 1 tablet (10 mg total) by mouth daily 11/25/2024 Active metFORMIN (GLUCOPHAGE) 1,000 mg tablet Take 1 tablet (1,000 mg total) by mouth 2 (two) times a day with meals 12/08/2024 Active Active Problems Problem Noted Date Diagnosed Date Tobacco abuse 01/19/2025 PVCs (premature ventricular contractions) 2024 Hyperlipidemia associated with type 2 diabetes m claudioitus 01/19/2025 Coronary artery disease invo lving [place] coronary artery of [place] heart without angina pectoris 01/19/2025 Encounters Date Type Department Care Team Description 01/30/2025 Orders Only [facility] Cardiology [address] [place] [phone] Ander Fontanez MD 01/27/2025 Telephone [place] [address] [place] [address] [phone] Isabella Perez MD 01/26/2025 Telephone [place] [address] [place] [phone] Isabella Perez MD 01/23/2025 9:15 AM DRAWING IN MACHINE TENDER HELPER Ancillary Procedure [place] [address] [place] [address] [phone] Coronary artery disease involving [place] coronary artery of [place] heart without angina pectoris; PVCs (premature ventricular contractions) 01/21/2025 8:15 AM DRAWING IN MACHINE TENDER HELPER Ancillary Procedure [place] [address] [place] [address] [phone] Coronary artery disease involving [place] coronary artery of [place] heart without angina pectoris; Hyperlipidemia associated with type 2 diabetes mellitus (HCC); PVCs (premature ventricular contractions) 01/21/2025 Results Follow-Up [place] [address] [place] [phone] Isabella Perez MD Transthoracic Echo (TTE) Complete W Doppler/CF, NM MPI SPECT (Rest and/or Stress) Multiple Studies 01/19/2025 8:00 AM DRAWING IN MACHINE TENDER HELPER Office Visit [address] [phone] Isabella Perez MD Coronary artery disease involving [place] coronary artery of [place] heart without angina pectoris (Primary Dx); Hyperlipidemia associated with type 2 diabetes mellitus (HCC); PVCs (premature ventricular contractions); Tobacco abuse 01/19/2025 Orders Only [place] [address] [place] [address] [phone] Provider, MD Cecilio from Last 3 Months Medical History Medical History Date Comments Coronary artery disease Hyperlipidemia Family History Medical History Relation Name Comments Hyperlipidemia Brother Hypertension Brother Aortic aneurysm Father Alzheimer's disease Mother Cancer Sister Relation Name Status Comments Brother Alive Father Mother Sister Social History Tobacco Use Types Packs/Day Years Used Date Smoking Tobacco: Every Day Cigarettes Tobacco Cessation:Ready to Q uit: Not Asked; Counseling Given: Not Answered Sex and Gender Information Value Date Recorded Sex Assigned at Not on file Legal Sex Male 6:13 PM DRAWING IN MACHINE TENDER HELPER Gender Identity Not on file Sexual Orientation Not on file Last Filed Vital Signs Vital Sign Reading Time Taken Comments Blood Pressure 130/64 01/19/2025 8:06 AM DRAWING IN MACHINE TENDER HELPER Pulse 67 01/19/2025 8:06 AM DRAWING IN MACHINE TENDER HELPER Temperature - - Respiratory Rate - - Oxygen Saturation 98% 01/19/2025 8:06 AM DRAWING IN MACHINE TENDER HELPER Inhaled Oxygen Concentration - - Weight 81.2 kg (179 lb) 01/19/2025 8:06 AM DRAWING IN MACHINE TENDER HELPER Height 182.9 cm (6') 01/19/2025 8:06 AM DRAWING IN MACHINE TENDER HELPER Body Mass Index 24.28 01/19/2025 8:06 AM DRAWING IN MACHINE TENDER HELPER Plan of Treatment Health Maintenance Due Date Last Done Comments Albumin Creatinine Ratio, Urine 1950 Colon Cancer Screening-Colonoscopy 1950 Depression Screening 1950 Fall Risk Assessment 1950 Hemoglobin A1C 1950 Hepatitis C Screening 1950 eGFR 1950 Dilated Eye Exam 1950 Foot Exam 1950 Hepatitis B Screening 11/13/1969 Zoster Vaccine (1 of 2) 11/13/2001 Abdominal Aortic Aneurysm (A AA) Screen 11/13/2016 Well Visit 65+ 11/13/2016 Pneumococcal vaccine 65+ (2 of 2 - PCV) 02/02/2019 02/02/2018 Covid-19 Vaccine (3 - 2024- season) 11/03/202402/2021, 04/15/2020 Influenza Vaccine (#1) 2024 9, 11/28/2017, 11/30/2016 Lipid Panel 10/29/2025 10/29/2024 DTaP/Tdap/Td Vaccine (2 - Td or Tdap) 08/23/2034 Procedures Procedure Name Priority Date/Time Associated Diagnosis Comments CARDIOLOGY DOCUMENT SCAN Routine 01/30/2025 11:37 AM DRAWING IN MACHINE TENDER HELPER NM MPI SPECT (REST AND/OR STRESS) MULTIPLE STUDIES Schedule Routine, Read Routine (OP Routine) 01/23/2025 10:18 AM DRAWING IN MACHINE TENDER HELPER Coronary artery disease involving [place] coronary artery of [place] heart without angina pectoris PVCs (premature ventricular contractions) TRANSTHORACIC ECHO (TTE) COMPLETE W DOPPLER/CF W CONTRAST Routine 01/21/2025 9:13 AM DRAWING IN MACHINE TENDER HELPER Coronary artery disease involving [place] coronary artery of [place] heart without angina pectoris Hyperlipidemia associated with type 2 diabetes mellitus (HCC) PVCs (premature ventricular contractions) ELECTROCARDIOGRAM REPORT Routine 01/19/2025 9:27 AM DRAWING IN MACHINE TENDER HELPER Coronary artery disease involving [place] coronary artery of [place] heart without angina pectoris PVCs (premature ventricular contractions) LIPID PANEL Routine 10/29/2024 9:30 AM CDT from Last 3 Months or Most Recently Relevant to Health Maintenance Results * Cardiology Document Scan (01/30/2025 11:37 AM DRAWING IN MACHINE TENDER HELPER) Anatomical Region Laterality Modality Other Ander Fontanez MD CV CARDIAC SERVICES PROCEDURES F inal Result * NM MPI SPECT (Rest and/or Stress) Multiple Studies (01/23/2025 10:18 AM DRAWING IN MACHINE TENDER HELPER) Anatomical Region Laterality Modality Body N/A Nuclear Medicine 01/23/2025 9:13 AM DRAWING IN MACHINE TENDER HELPER Narrative 01/23/2025 1:53 PM DRAWING IN MACHINE TENDER HELPER [facility] Cardiology [address] [address] [address] [facility] [address], [place] [address] [address] [place] [address] P:[phone] P:[phone] MPI Imaging Report Patient Name: DEAN HOLLAND M : 1950 Study Date: 01/23/2025 9:13:42 AM Sex: M Tech: COURT MATTHEWSMT Location: [facility] Provider: ISABELLA PEREZ Height(Cm): 182.9 BSA: Weight(Kg): 81.2 BMI: 24.27 Order Provider: ISABELLA PEREZ PHYSICIAN: Primary Care Physician: Dr. Rueda. [facility] Physician: Brendon Perez M.D. Stress Supervision: Brendon Perez M.D. Stress Interpreting Physician: Brendon Perez M.D. PROCEDURES: Exercise SPECT Report: Myocardial perfusion imaging with Tc99m Sestamibi SPECT at rest and stress post exercise using the Alex protocol. INDICATIONS: Family Hx CAD, High Cholesterol, Smoker, I25.10 Atherosclerotic heart disease of [place] coronary artery without angina pectoris, and I49.3 Ventricular premature depolarization. FINDINGS: Procedure: One day rest/stress protocol was used. Tc99m Sestamibi injected IV at rest was 10.7 millicuries 32.3 millicuries of Tc99m Sestamibi injected IV at peak stress Patient had no symptoms during stress test. Baseline heart rate was 70 BPM Peak heart rate was 146 BPM Max projected heart rate was 147 Percent predicted max heart rate achieved was 99 % Exercise Time 7:10 min Baseline blood pressure was 134/78 mmHg Peak blood pressure 160/68 mmHg Termination: Fatigue. Exercise Tolerance: Good for patient's age. Resting ECG: Normal sinus rhythm. Cannot r/o IMI - age uncertain. Post EC mm or less upsloping inf/lat ST depression. Findings are borderline/equivocal for ischemia. Arrhythmia: Occasional PVCs. Occasional APCs. Perfusion Findings: Abnormal perfusion imaging - see below. Technical quality of study is excellent. Prone imaging was not performed. Left ventricle cavity size at rest is moderately enlarged. Left ventricle cavity size with stress is unchanged. A TID of 0.96 was automatically calculated. defect 1: Size is large. Severity is severe. Location of defect is in the basal inferior segment, mid inferior segment, mid inferolateral segment, apical inferior segment and apex. Reversibility is not present, defect is fixed. Type of defect is infarction. LV Function: Left Ventricular Ejection Fraction is 34 %. There is moderate to severe LV dysfunction. PostStress LV Wall Motion: There is hypokinesis in the basal inferoseptal segment, basal inferior segment, basal inferolateral segment, mid inferoseptal segment, mid inferior segment, mid inferolateral segment and apical inferior segment. CONCLUSIONS: Myocardial perfusion imaging is abnormal. Size is large. Severity is severe. Location of defect is in the basal inferior segment, mid inferior segment, mid inferolateral segment, apical inferior segment and apex. Reversibility is not present, defect is fixed. Type of defect is infarction. 1 mm or less upsloping inf/lat ST depression. Findings are borderline/equivocal for ischemia. Left Ventricular Ejection Fraction is 34 %. There is moderate to severe LV dysfunction. There is hypokinesis in the basal inferoseptal segment, basal inferior segment, basal inferolateral segment, mid inferoseptal segment, mid inferior segment, mid inferolateral segment and apical inferior segment. Electronically Signed By: Isabella Perez MD 01/23/2025 12:49:30 PM DRAWING IN MACHINE TENDER HELPER Electronically Signed By: Isabella Perez MD 01/23/2025 12:49:30 PM DRAWING IN MACHINE TENDER HELPER Procedure Note Isabella Perez MD - 01/23/2025 [facility] Cardiology [address] [facility] [address] [address] [address] [facility] [address], [place] [address] [address] , [place] [address] P:[phone] P:[phone] MPI Imaging Report Patient Name: DEAN HOLLAND M : 1950 Study Date: 01/23/2025 9:13:42 AM Sex: M Tech: COURT MATTHEWSMT Location: [facility] Provider: ISABELLA PEREZ Height(Cm): 182.9 BSA: Weight(Kg): 81.2 BMI: 24.27 Order Provider: ISABELLA PEREZ PHYSICIAN: Primary Care Physician: Dr. Rueda. [facility] Physician: Brendon Perez M.D.Stress Supervision: Brendon Perez M.D. Stress Interpreting Physician: Chuy Elmore. PROCEDURES: Exercise SPECT Report: Myocardial perfusion imaging with Tc99m Sestamibi SPECT at rest and stresspost exercise using the Alex protocol. INDICATIONS: Family Hx CAD, High Cholesterol, Smoker, I25.10 Atherosclerotic heartdisease of [place] coronary artery without angina pectoris, and I49.3 Ventricular prematuredepolarization. FINDINGS: Procedure: One day rest/stress protocol was used. Tc99m Sestamibi injected IV at rest was 10.7 millicuries 32.3 millicuries of Tc99m Sestamibi injected IV at peak stress Patient had no symptoms during stress test. Baseline heart rate was 70 BPM Peak heart rate was 146 BPM Max projected heart rate was 147 Percent predicted max heart rate achieved was 99 % Exercise Time 7:10 min Baseline blood pressure was 134/78 mmHg Peak blood pressure 160/68 mmHg Termination: Fatigue. Exercise Tolerance: Good for patient's age. Resting ECG: Normal sinus rhythm. Cannot r/o IMI - age uncertain. Post EC mm or less upsloping inf/lat ST depression. Findings areborderline/equivocal for ischemia. Arrhythmia: Occasional PVCs. Occasional APCs. Perfusion Findings: Abnormal perfusion imaging - see below. Technical quality of study isexcellent. Prone imaging was not performed. Left ventricle cavity size at rest ismoderately enlarged. Left ventricle cavity size with stress is unchanged. A TID of 0.96 wasautomatically calculated. defect 1: Size is large. Severity is severe. Location of defect is in the basalinferior segment, mid inferior segment, mid inferolateral segment, apical inferior segmentand apex. Reversibility is not present, defect is fixed. Type of defect isinfarction. LV Function: Left Ventricular Ejection Fraction is 34 %. There is moderate to severe LVdysfunction. PostStress LV Wall Motion: There is hypokinesis in the basal inferoseptal segment, basal inferiorsegment, basal inferolateral segment, mid inferoseptal segment, mid inferior segment, midinferolateral segment and apical inferior segment. CONCLUSIONS: Myocardial perfusion imaging is abnormal. Size is large. Severity is severe. Location of defect is in the basalinferior segment, mid inferior segment, mid inferolateral segment, apical inferior segmentand apex. Reversibility is not present, defect is fixed. Type of defect isinfarction. 1 mm or less upsloping inf/lat ST depression. Findings areborderline/equivocal for ischemia. Left Ventricular Ejection Fraction is 34 %. There is moderate to severe LVdysfunction. There is hypokinesis in the basal inferoseptal segment, basal inferiorsegment, basal inferolateral segment, mid inferoseptal segment, mid inferior segment, midinferolateral segment and apical inferior segment. Electronically Signed By: Isabella Perez MD 01/23/2025 12:49:30 PM DRAWING IN MACHINE TENDER HELPER Electronically Signed By: Isabella Perez MD 01/23/2025 12:49:30 PM DRAWING IN MACHINE TENDER HELPER us Isabella Perez MD IMG NM PROCEDURES Final R esult * TRANSTHORACIC ECHO (TTE) COMPLETE W DOPPLER/CF W CONTRAST (01/21/2025 9:13 AM DRAWING IN MACHINE TENDER HELPER) Estimated EF 40 % CONS SCIMAGE EF Mod BP 36 % CONS SCIMAGE Anatomical Region Laterality Modality Ultrasound 01/21/2025 8:05 AM DRAWING IN MACHINE TENDER HELPER Narrative 01/21/2025 12:18 PM DRAWING IN MACHINE TENDER HELPER [facility] Medical Group Cardiology [address] [facility] [address] [address] [address] [facility] [address], [place] [address] [phone] P:[phone] Echocardiographic Report Patient Name: DEAN HOLLAND M : 1950 Study Date: 01/21/2025 8:05:41 AM Sex: M Licensing Manager: Zehra Long)(CT), [facility] Location: [facility] Provider: ISABELLA PEREZ Height(Cm): 183 BSA: 2.03 Weight(Kg): 81.2 Heart Rate: 66 BP: 130 / 64 Quality: Good Order Provider: ISABELLA PEREZ PROCEDURES: Echocardiographic Report: Transthoracic echocardiogram with complete 2D, M-Mode, color Doppler examination and Definity contrast. With Strain Analysis. INDICATIONS: I25.10 Atherosclerotic heart disease of [place] coronary artery without angina pectoris, E11.69 Type 2 diabetes mellitus with other specified complication, E78.5 Hyperlipidemia, unspecified, and I49.3 Ventricular premature depolarization. MEASUREMENTS: 2D/MM Value Range Doppler Value Range EF Mod BP 36 % [ 52 - 72 ] KRISTEN Vmax 2.43 cm2 [ 2.00 - 4.00 ] Estimated EF 40 % AV Mean PG 4 mmHg LV GLS -13.79 % AV Peak Robbie 1.40 m/s [ 1.00 - 1.70 ] LVIDd 2D 5.70 cm [ 4.20 - 5.80 ] AV Peak PG 8 mmHg LVIDs 2D 4.69 cm [ 2.50 - 4.00 ] AV VTI 34.09 cm LVPWd 2D 1.04 cm [ 0.60 - 1.00 ] LVOT Diam 2.03 cm [ 1.70 - 2.10 ] IVSd 2D 1.03 cm [ 0.60 - 1.00 ] LVOT Peak Robbie 1.05 m/s [ 0.70 - 1.10 ] AoR Diam 2D 3.51 cm [ 3.10 - 3.70 ] LVOT VTI 26.69 cm LA Volume 46.77 ml [ 18.00 - 58.00 ] PV Peak Robbie 0.93 m/s [ 0.40 - 0.80 ] LA Volume Index 23 cc/m2 [ 16 - 28 ] RV S` 12.07 mmHg RA Volume 26.69 ml Tapse 2.27 cm [ 1.71 - 5.00 ] 2D/MM Value Range Doppler Value Range - FINDINGS: Interpretation Site: Exam was interpreted at [facility]. Left Ventricle: Definity contrast agent used to visually enhance endocardial wall motion and contractility. Lot Number: [id number]. Mild concentric left ventricular hypertrophy. Mild enlargement of left ventricle cavity. Moderate global left ventricular systolic dysfunction. Impaired diastolic relaxation Grade I. Ejection fraction is measured at 36 %. Ejection Fraction is visually estimated to be 40 %. Global Longitudinal Strain is -14 %. GLS is abnormal. These segments of the LV are hypokinetic: apical inferior segment, inferoseptum segment and inferolateral segment. These segments of the LV are akinetic: basal inferior segment and mid inferior segment. Right Ventricle: Normal right ventricular size. Normal right ventricular systolic function. Left Atrium: There is mild enlargement of left atrium. Right Atrium: The right atrium is normal in size. Atrial Septum: Normal atrial septum. Mitral Valve: Mild mitral annular calcification. Moderate mitral valve regurgitation. There is no hemodynamically significant mitral stenosis by Doppler. Aortic Valve: No evidence of hemodynamically significant aortic stenosis by Doppler. Aortic cusps appear mildly sclerotic. Trileaflet aortic valve. Trace aortic valve regurgitation. Tricuspid Valve: Normal appearance of the tricuspid valve. Right ventricular systolic pressure could not be estimated due to inadequate visualization of the tricuspid regurgitation jet. Trivial regurgitation in the tricuspid valve. Pulmonic Valve: Normal appearance of the pulmonic valve. No pulmonic stenosis. Trivial regurgitation in the pulmonic valve. Pericardium: Normal pericardium with no significant pericardial effusion. Aorta: Normal aortic root. IVC: Normal size and normal respiratory collapse consistent with normal right atrial pressure (<5 mmHg). CONCLUSIONS: Definity contrast agent used to visually enhance endocardial wall motion and contractility. Lot Number: [id number]. Mild concentric left ventricular hypertrophy. Mild enlargement of left ventricle cavity. Moderate global left ventricular systolic dysfunction. Impaired diastolic relaxation Grade I. Ejection fraction is measured at 36 %. Ejection Fraction is visually estimated to be 40 %. Global Longitudinal Strain is -14 %. GLS is abnormal. These segments of the LV are hypokinetic: apical inferior segment, inferoseptum segment and inferolateral segment. These segments of the LV are akinetic: basal inferior segment and mid inferior segment. There is mild enlargement of left atrium. Mild mitral annular calcification. Moderate mitral valve regurgitation. Normal sinus rhythm. Electronically Signed By: Isabella Perez MD 01/21/2025 12:17:30 PM DRAWING IN MACHINE TENDER HELPER Procedure Note Isabella Perez MD - 01/21/2025 [facility] Medical Group Cardiology [address] [facility] [address], [place] [address] [address] [facility] [address], [place] [address] P:[phone] P:[phone] Echocardiographic Report Patient Name: DEAN HOLLAND M : 1950 Study Date: 01/21/2025 8:05:41 AM Sex: M Licensing Manager: Zehra Murphy (Giselle)(CT), [facility] Location: [facility] Provider: ISABELLA PEREZ Height(Cm): 183 BSA: 2.03 Weight(Kg): 81.2 Heart Rate: 66 BP: 130 / 64 Quality: Good Order Provider: ISABELLA PEREZ PROCEDURES: Echocardiographic Report: Transthoracic echocardiogram with complete 2D, M-Mode, color Dopplerexamination and Definity contrast. With Strain Analysis. INDICATIONS: I25.10 Atherosclerotic heart disease of [place] coronary artery withoutangina pectoris, E11.69 Type 2 diabetes mellitus with other specified complication, E78.5Hyperlipidemia, unspecified, and I49.3 Ventricular premature depolarization. MEASUREMENTS: 2D/MM Value Range Doppler ValueRange EF Mod BP 36 % [ 52 - 72 ] KRISTEN Vmax 2.43cm2 [ 2.00 - 4.00 ] Estimated EF 40 % AV Mean PG 4mmHg LV GLS -13.79 % AV Peak Robbie 1.40m/s [ 1.00 - 1.70 ] LVIDd 2D 5.70 cm [ 4.20 - 5.80 ] AV Peak PG 8mmHg LVIDs 2D 4.69 cm [ 2.50 - 4.00 ] AV VTI 34.09cm LVPWd 2D 1.04 cm [ 0.60 - 1.00 ] LVOT Diam 2.03cm [ 1.70 - 2.10 ] IVSd 2D 1.03 cm [ 0.60 - 1.00 ] LVOT Peak Robbie 1.05m/s [ 0.70 - 1.10 ] AoR Diam 2D 3.51 cm [ 3.10 - 3.70 ] LVOT VTI 26.69cm LA Volume 46.77 ml [ 18.00 - 58.00 ] PV Peak Robbie 0.93m/s [ 0.40 - 0.80 ] LA Volume Index 23 cc/m2 [ 16 - 28 ] RV S` 12.07mmHg RA Volume 26.69 ml Tapse 2.27cm [ 1.71 - 5.00 ] 2D/MM Value Range Doppler ValueRange - FINDINGS: Interpretation Site: Exam was interpreted at [facility]. Left Ventricle: Definity contrast agent used to visually enhance endocardial wall motionand contractility. Lot Number: [id number]. Mild concentric left ventricularhypertrophy. Mild enlargement of left ventricle cavity. Moderate global left ventricularsystolic dysfunction. Impaired diastolic relaxation Grade I. Ejection fraction ismeasured at 36 %. Ejection Fraction is visually estimated to be 40 %. Global LongitudinalStrain is -14 %. GLS is abnormal. These segments of the LV are hypokinetic: apicalinferior segment, inferoseptum segment and inferolateral segment. These segments of the LVare akinetic: basal inferior segment and mid inferior segment. Right Ventricle: Normal right ventricular size. Normal right ventricular systolicfunction. Left Atrium: There is mild enlargement of left atrium. Right Atrium: The right atrium is normal in size. Atrial Septum: Normal atrial septum. Mitral Valve: Mild mitral annular calcification. Moderate mitral valve regurgitation.There is no hemodynamically significant mitral stenosis by Doppler. Aortic Valve: No evidence of hemodynamically significant aortic stenosis by Doppler.Aortic cusps appear mildly sclerotic. Trileaflet aortic valve. Trace aortic valveregurgitation. Tricuspid Valve: Normal appearance of the tricuspid valve. Right ventricular systolicpressure could not be estimated due to inadequate visualization of the tricuspidregurgitation jet. Trivial regurgitation in the tricuspid valve. Pulmonic Valve: Normal appearance of the pulmonic valve. No pulmonic stenosis. Trivialregurgitation in the pulmonic valve. Pericardium: Normal pericardium with no significant pericardial effusion. Aorta: Normal aortic root. IVC: Normal size and normal respiratory collapse consistent with normal rightatrial pressure (<5 mmHg). CONCLUSIONS: Definity contrast agent used to visually enhance endocardial wall motionand contractility. Lot Number: [id number]. Mild concentric left ventricularhypertrophy. Mild enlargement of left ventricle cavity. Moderate global left ventricularsystolic dysfunction. Impaired diastolic relaxation Grade I. Ejection fraction ismeasured at 36 %. Ejection Fraction is visually estimated to be 40 %. Global LongitudinalStrain is -14 %. GLS is abnormal. These segments of the LV are hypokinetic: apicalinferior segment, inferoseptum segment and inferolateral segment. These segments of the LVare akinetic: basal inferior segment and mid inferior segment. There is mild enlargement of left atrium. Mild mitral annular calcification. Moderate mitral valve regurgitation. Normal sinus rhythm. Electronically Signed By: Isabella Perez MD 01/21/2025 12:17:30 PM DRAWING IN MACHINE TENDER HELPER Result [facility] Isabella Perez MD CV ECHO PROCEDURES Final Result * Electrocardiogram Report (01/19/2025 9:27 AM DRAWING IN MACHINE TENDER HELPER) Result [facility] Isabella Perez MD ECG ORDERABLES Final Res ult * (ABNORMAL) Lipid panel (10/29/2024 9:30 AM CDT) SCRIBED Cholesterol, Total 105 30 - 199 mg/dL EXTERNAL LAB SCRIBED Triglycerides 120 <=149 mg/dL EXTERNAL LAB SCRIBED HDL 35(A) >=40 mg/dL EXTERNAL LAB SCRIBED LDL 49 <=129 mg/dL EXTERNAL LAB Scribed Non-HDL Cholesterol 70 NONE mg/dL EXTERNAL LAB SCRIBED Total Cholesterol/HDL Ratio 105 NONE EXTERNAL LAB Blood Cecilio Xavier MD LAB BLOOD ORDERABLES Edit ed Result - Final EXTERNAL LAB from Last 3 Months or Most Recently Relevant to Health [place] [address] [employer] MEDICARE Care Teams Manager Reporting Relationship Specialty Start Date End Date Francisco Rueda MD [address] [address] PCP - General Family Medicine 07/02/24
--- OUTSIDE RECORDS SUMMARY | 2025-02-06 02:28 | XMS_ITS | Clinical Summary ---
Author Organization [facility] Address [address] [place] [address] Care Team Providers Care Ear Mold Laboratory Technician Name Role Phone Kwan Barnett MD Unavailable [phone] Francisco Rueda MD Primary Care Provider [phone] Kwan Barnett MD Unavailable [phone] Source Comments [facility],non-owned Affiliates and Associated Physician Practices is amultiple site organization consisting of ambulatory clinics and hospital sitesin [place], [place], [place] and [place]. This disclosure is being madepursuant to the Care Everywhere program and may not contain all information available regarding this patient. Last updated 17.[facility] Allergies No known active allergies Medications * Be aware that medications may not be up to date on this document. Alwaysverify current medications with the patient. aspirin (ASPIRIN) 81 MG chew tablet Take 1 (one) tablet by mouth once daily Active metFORMIN (GLUCOPHAGE) 500 MG tablet Take 2 (two) tablets by mouth 2 times daily with morning and evening meal Active nitroGLYCERIN (Nitrostat) 0.4 MG tablet Dissolve 1 (one) tablet under the tongue every 5 minutes as needed for Angina 25 tablet 5 023 Active metoprolol tartrate IR (Lopressor) 50 MG tablet TAKE 1/2 TABLET BY MOUTH THREE TIMES DAILY 135 tablet 3 025 Active ezetimibe (Zetia) 10 MG tabletIndications:Pure hypercholesterolemia Take 1 (one) tablet by mouth once daily PLEASE MAKE APPOINTMENT TO ENSURE FUTURE REFILLS 90 tablet 025 Active rosuvastatin (Crestor) 20 MG tabletIndications:Pure hypercholesterolemia Take 1 (one) tablet by mouth once daily PLEASE MAKE APPOINTMENT TO ENSURE FUTURE REFILLS 90 tablet 025 Active Active Problems Problem Noted Date Diagnosed Date Weight loss 01/29/2024 Diabetes mellitus type 2 in nonobese 01/23/2023 Pure hypercholesterolemia 01/28/2020 Tobacco use disorder 01/10/2016 CAD in [place] artery 11/16/2014 History of coronary artery stent placement 11/16 Overview (03/03/2019): 1999 after [place] (myocardial infarction) 11/16/2014 PVC's (premature ventricular contractions) 11/16 Resolved Problems Problem Noted Date Diagnosed Date Resolved Date Hyperlipidemia 11/16/2014 01/28/2020 Encounters Date Type Department Care Team Description 11/24/2024 [address] [facility] [address] [place] [address] [address] [place] [address] Kwan Barnett MD Refill Request from Last 3 Months Family History Medical History Relation Name Comments [place]<55(male) Maternal Grandfather Heart defect Mother Relation Name Status Comments Maternal Grandfather Mother Social History Tobacco Use Types Packs/Day Years Used Date Smoking Tobacco: Some Days Cigarettes 1 25 Smokeless Tobacco: Never Tobacco Cessation:Ready to Q uit: Not Asked; Counseling Given: Not Answered Comments:quit completely for 15 years Alcohol Use Standard Drinks/Week Comments Yes 3 (1 standard drink = 0.6 oz pur e alcohol) PHQ-2 Answer Date Recorded Patient Health Questionnaire-2 Score 0 01/29/2024 Sex and Gender Information Value Date Recorded Sex Assigned at Not on file 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 Gender Identity Not on file Sexual Orientation Not on file Last Filed Vital Signs Vital Sign Reading Time Taken Comments Blood Pressure 158/64 01/29/2024 8:36 AM FOOD SERVICE CLERK Pulse 60 01/29/2024 8:36 AM FOOD SERVICE CLERK Temperature 36.8 C (98.2 F) 01/29/2024 8:36 AM FOOD SERVICE CLERK Respiratory Rate 18 11/01/2019 3:26 PM CDT Oxygen Saturation 100% 11/01/2019 3:26 PM CDT Inhaled Oxygen Concentration - - Weight 79.2 kg (174 lb 8 oz) 01/29/2024 8:36 AM FOOD SERVICE CLERK Height 182.9 cm (6') 01/29/2024 8:36 AM FOOD SERVICE CLERK Body Mass Index 23.67 01/29/2024 8:36 AM FOOD SERVICE CLERK Plan of Treatment Health Maintenance Due Date Last Done Comments COLOGUARD (AGES 45-75) - COL ON CA SCREENING 1950 COLON MONITORING 1950 COLONOSCOPY - COLON CA SCREENING 1950 CT COLONOGRAPHY - COLON CA SCREENING 1950 Colorectal Cancer Screening 1950 FIT - COLON CA SCREENING 1950 FLEX SIG - COLON CA SCREENING 1950 HEPATITIS C SCREENING 11/09/1969 DTAP/TDAP/TD VACCINES (1 - Tdap) 11/13/1970 PNEUMOCOCCAL VACCINE 50+ (1 of 2 - PCV) 11/13/1970 LUNG CANCER SCREENING 11/13/2001 Respiratory Syncytial Virus (RSV) Vaccine Pt: or over 60 yrs (1 - Risk 50-74 years 1-dose series) 11/13/2001 ZOSTER VACCINE (1 of 2) 11/13/2001 AAA SCREENING 11/13/2016 DIABETES-SERUM CREATININE 10/31/2020 11/01/2019 DIABETES RETINOPATHY SCREENING 01/23/2023 DIABETES-FOOT EXAM WITH MONOFILAMENT 01/23/2023 DIABETES-HGB A1C 01/23/2023 DEPRESSION SCREENING 03/05/2024 01/29/2024, 01/23/2023, 01/24/2022 DIABETES - URINE PROTEIN SCREENING 03/05/2024 MEDICARE AWV CALENDAR YEAR 2024 COVID-19 VACCINE (3 - 2024-2 6 season) 2024 05/14/2020, 04/15/2020 INFLUENZA VACCINE (#1) 2024 9, 11/28/2017, 11/30/2016 HEPATITIS B VACCINE Aged Out No longe r eligible based on patient's age to complete this topic HIB VACCINE Aged Out No longer eligi ble based on patient's age to complete this topic HPV VACCINE Aged Out No longer eligi ble based on patient's age to complete this topic MENINGOCOCCAL (Group B) VACCINE SHARED DECISION-MAKING Aged Out No longer eligible based on patient's age to complete this topic MENINGOCOCCAL GROUPS A/C/Y/W VACCINE Aged Out No longer eligible b ased on patient's age to complete this topic Procedures Procedure Name Priority Date/Time Associated Diagnosis Comments COMPREHENSIVE METABOLIC PANEL STAT 11/01/2019 10:56 AM CDT from Last 3 Months or Most Recently Relevant to Health Maintenance Results * (ABNORMAL) COMPREHENSIVE METABOLIC PANEL (11/01/2019 10:56 AM CDT) BUN 8 7 - 26 mg/dL 11/01/2019 11:20 AM [facility] Creatinine 0.9 0.6 - 1.2 mg/dL 11/01/2019 11:20 AM [facility] Sodium 134(L) 136 - 145 mmol/L 11/01/2019 11:20 AM [facility] Potassium 4.6(H) 3.5 - 4.5 mmol/L 11/01/2019 11:20 AM [facility] Chloride 99 98 - 107 mmol/L 11/01/2019 11:20 AM [facility] CO2 26 22 - 29 mmol/L 11/01/2019 11:20 AM [facility] Glucose 116(H) 70 - 115 mg/dL 11/01/2019 11:20 AM [facility] Calcium 8.8 8.4 - 10.2 mg/dL 11/01/2019 11:20 AM [facility] Protein Total 6.7 6.0 - 8.3 g/dL 11/01/2019 11:20 AM [facility] Albumin 4.2 3.4 - 5.0 g/dL 11/01/2019 11:20 AM [facility] Bilirubin Total 1.1 0.2 - 1.2 mg/dL 11/01/2019 11:20 AM [facility] Alkaline Phosphatase 47 40 - 150 Units/L 11/01/2019 11:20 AM [facility] ALT 13 0 - 55 Units/L 11/01/2019 11:20 AM [facility] AST 16 5 - 34 Units/L 11/01/2019 11:20 AM [facility] Anion Gap 14 8 - 18 11/01/2019 11:20 AM [facility] BUN/Creatinine Ratio 9 7 - 23 11/01/2019 11:20 AM [facility] Osmolality Calculated 277 270 - 300 mOsm/kg 11/01/2019 11:20 AM [facility] Albumin/Globulin Ratio 1.7 1.1 - 2.3 11/01/2019 11:20 AM [facility] eGFR >60 >60 mL/min/1.7 3 m2 11/01/2019 11:20 AM [facility] Blood BLOOD SPECIMEN / Unknown Venipuncture / Unknown 11/01/2019 10:56 AM CDT 11/01/2019 10:59 AM CDT Irene Simpson DO LAB - CHEMISTRY ORDERABLES [facility] [address] [place] [address], [facility] [phone] from Last 3 Months or Most Recently Relevant to Health Maintenance Insurance [facility] MEDICARE [employer] Care Teams Ear Mold Laboratory Technician Relationship Specialty Start Date End Date Francisco Rueda MD [address] [place] [phone] PCP - General Family Medicine 01/28/20 Kwan Barnett MD Call Center Support Consultant Cardiovascular Disease 07/09/15 Kwan Barnett MD [facility] [address] [place] [address] Call Center Support Consultant Cardiovascular Disease 01/29/24
--- OUTSIDE RECORDS SUMMARY | 2025-02-06 02:29 | XMS_ITS | Data Portability ---
Author Organization [place] [employer], Main Office Address [address] [place] [address] Care Team Providers Care Flight Inspector Name Role Phone FRANCISCO RUEDA Primary Care Provider Assessment Encounter Date Assessment Date Assessment LastModified by Organization Details LastModified Time 08/20/2023 08/20/2023 72 yo M with - WELL ADULT VISIT - DM II - HTN - HLD - CAD (S/p 1 stent in 1998) - EMPHYSEMA - RT SHOULDER PAIN, chronic - ED - OVERWEIGHT - SMOKER - H/O VIT D DEFICIENCY - H/O THROMBOCYTOPENIA - H/O HYPERBILIRUBINEMIA HbA1C: 6.6(07/26/18) - 6.0(11/05/18) - 6.2(01/28/19) - 6.4(05/01/19) - 5.9(08/06/19) - 5.8(02/04/20) - 6.0(08/25/20) - 5.8(08/18/21) - 5.8(08/15/22) LDCT chest: 09/06/22. Annual labs: 08/15/22. LDCT chest: 09/01/21. Annual labs: 08/18/21. LDCT chest wo: 08/30/20. Annual labs: 08/25/20. CT brain & face wo: 11/01/19. Annual labs: 08/06/19. LDCT chest: 08/05/19. LDCT chest: 08/01/18. Annual labs: 07/26/18. D/w pt in detail about his conditions, recent labs & imagines and further plan of care. Will do routine labs and LDCT chest. Pt declined for any repeat labs after [...] for it. Cont f/u with Ophtho at [facility] as per schedule. Cont f/u with Cardio at [facility] as per schedule. Cont f/u with GI at [facility] as per schedule. Cont f/u with Derm at [facility] as per schedule. Cont f/u with Ortho at [facility] as per schedule. Advised to do PFT/refer to Pulmo; but pt declined. Advised to refer to Hemat; but pt declined. Advised to refer to Hand Rigger; but pt declined. Educated pt about alarming symptoms to monitor at home and call us back or get checked in ED. HM: Colonoscopy - 01/25, h/o polyp ++. Cont f/u with GI as per their recommendations. US AAA - 08/01/18, Neg. Tdap - 2016. Flu - 01/25. Pt gets at [facility]. Pneumo - 02/19. Shingrix - At pharmacy/HD. F/u in 3-4 weeks. Annual labs, LDCT chest in 08/27. [email or web address] Not available 08/20/2023 09:18:34 09/25/2023 09/25/2023 72 yo M with - DM II - HTN - HLD - CAD (S/p 1 stent in 1998) - EMPHYSEMA - RT SHOULDER PAIN, chronic - ED - OVERWEIGHT - SMOKER - H/O VIT D DEFICIENCY - H/O THROMBOCYTOPENIA - H/O HYPERBILIRUBINEMIA HbA1C: 6.6(07/26/18) - 6.0(11/05/18) - 6.2(01/28/19) - 6.4(05/01/19) - 5.9(08/06/19) - 5.8(02/04/20) - 6.0(08/25/20) - 5.8(08/18/21) - 5.8(08/15/22) - 6.3(08/22/23) LDCT chest: 09/10/23. Annual labs: 08/22/23. LDCT [...] for it. Cont f/u with Ophtho at [facility] as per schedule. Cont f/u with Cardio at [facility] as per schedule. Cont f/u with GI at [facility] as per schedule. Cont f/u with Derm at [facility] as per schedule. Cont f/u with Ortho at [facility] as per schedule. Advised to do PFT/refer to Pulmo; but pt declined. Advised to refer to Hemat; but pt declined. Advised to refer to Hand Rigger; but pt declined. Educated pt about alarming symptoms to monitor at home and call us back or get checked in ED. HM: Colonoscopy - 01/25, h/o polyp ++. Cont f/u with GI as per their recommendations. US AAA - 08/01/18, Neg. Tdap - 2016. Flu - 01/25. Pt gets at [facility]. Pneumo - 2014; 02/19. Shingrix - At pharmacy/HD. F/u in 4-11 months. Annual labs, LDCT chest in 08/27. [email or web address] Not available 09/25/2023 09:20:30 10/27/2024 10/27/2024 73 yo M with - WELL ADULT VISIT - DM II - HTN - HLD - CAD (S/p 1 stent in 1998) - EMPHYSEMA - RT SHOULDER PAIN, chronic - ED - OVERWEIGHT - SMOKER - H/O VIT D DEFICIENCY - H/O THROMBOCYTOPENIA - H/O HYPERBILIRUBINEMIA HbA1C: 6.6(07/26/18) - 6.0(11/05/18) - 6.2(01/28/19) - 6.4(05/01/19) - 5.9(08/06/19) - 5.8(02/04/20) - 6.0(08/25/20) - 5.8(08/18/21) - 5.8(08/15/22) - 6.3(08/22/23) LDCT chest: 09/10/23. Annual labs: 08/22/23. LDCT chest: 09/06/22. Annual labs: 08/15/22. LDCT chest: 09/01/21. Annual labs: 08/18/21. LDCT chest wo: 08/30/20. Annual labs: 08/25/20. CT brain & face wo: 11/01/19. Annual labs: 08/06/19. LDCT chest: 08/05/19. LDCT chest: 08/01/18. Annual labs: 07/26/18. D/w pt in detail about his conditions, recent labs & imagines and further plan of care. Will do routine labs, LDCT chest. Pt declined for any repeat labs after [...] for it. Cont f/u with Ophtho at [facility] as per schedule. Cont f/u with Cardio at [facility] as per schedule. Cont f/u with GI at [facility] as per schedule. Cont f/u with Derm at [facility] as per schedule. Cont f/u with Ortho at [facility] as per schedule. Advised to do PFT/refer to Pulmo; but pt declined. Advised to refer to Hemat; but pt declined. Advised to refer to Hand Rigger; but pt declined. Educated pt about alarming symptoms to monitor at home and call us back or get checked in ED. HM: Colonoscopy - 11/25, h/o polyp ++. Cont f/u with GI as per their recommendations. US AAA - 08/01/18, Neg. Tdap - 08/27. Flu - 01/25. Pt gets at [facility]. Pneumo - 02/19. Shingrix - Pt got both doses. F/u in 3-4 weeks. Annual labs, LDCT chest in 10/28. Not available 10/27/2024 14:28:44 12/08/2024 12/08/2024 74 yo M with - [...] for it. Cont f/u with Ophtho at [facility] as per schedule. Cont f/u with Cardio at [facility] as per schedule. Cont f/u with GI at [facility] as per schedule. Cont f/u with Derm at [facility] as per schedule. Cont f/u with Ortho at [facility] as per schedule. Advised to do PFT/refer to Pulmo; but pt declined. Advised to refer to Hemat; but pt declined. Advised to refer to Hand Rigger; but pt declined. Educated pt about alarming symptoms to monitor at home and call us back or get checked in ED. HM: Colonoscopy - 11/25, h/o polyp ++. Cont f/u with GI as per their recommendations. US AAA - 08/01/18, Neg. Tdap - 08/27. Flu - 01[facility]26. [facility]. Pneumo - 2014; 02/19. Shingrix - Pt got both doses. F/u in 6-11 months. Annual labs, LDCT chest in 10/28. Not available 12/08/2024 09:29:40 Plan of Treatment Reminders Order Date Submit Date Provider Last Modified By Organization Details Last Modified Time Details Appointments Physical/ Annual Wellness 2025 08:00A Bernie Rueda MD Not available Not available Not available Lab vitamin D, 25-hydrox y, total, serum 2024 025 [employer] [facility], [address], [address], [place], [address], 10/29/2024 06:47:40 lipid panel, serum 2024 025 [employer] [facility], [address], [place], [address], 10/29/2024 06:47:34 TSH, serum, reflex free T4 2024 025 [employer] [facility], [address], [place], [address], 11/05/2024 14:36:52 PSA, serum or plasma 2024 025 [employer] [facility], [address], [place], [address], 10/29/2024 06:47:38 HbA1c (hemoglob in A1c), blood 2024 025 [employer] [facility], [address], [address], [place], [address], 10/29/2024 06:47:41 microalbu min, urine 2024 025 [email or web address] [employer] [facility], [address], [address], [place], [address], 11/05/2024 14:36:52 CBC w/ auto diff 2024 025 [employer] [facility], [address], [address], [place], [address], 10/29/2024 06:47:37 CMP, serum or plasma 2024 025 [employer] [facility], [address], [address], [place], [address], 10/29/2024 06:47:36 urinalysi s complete, reflex culture 2024 025 [email or web address] [employer] [facility], [address], [address], [place], [address], 11/05/2024 14:36:53 PSA, serum or plasma 2023 024 [place] [employer] [facility], [address], [address], [place], [address], 08/23/2023 12:50:17 CBC w/ auto diff 2023 024 [place] [employer] [facility], [address], [address], [place], [address], 08/23/2023 12:50:16 urinalysi s, complete 2023 024 [employer] [facility], [address], [address], [place], [address], 08/23/2023 12:50:16 CMP, serum or plasma 2023 024 [employer] [facility], [address], [address], [place], [address], 08/23/2023 12:50:15 HbA1c (hemoglob in A1c), blood 2023 024 [employer] [facility], [address], [address], [place], [address], 08/23/2023 12:50:18 microalbu min, urine 2023 024 [employer] [facility], [address], [address], [place], [address], 08/23/2023 12:50:15 lipid panel, serum 2023 024 [employer] [facility], [address], [address], [place], [address], 08/23/2023 12:50:14 TSH, serum, reflex free T4 2023 024 [email or web address] [employer] [facility], [address], [address], [place], [address], 08/27/2023 07:57:45 Referral None recorded. Procedures None recorded. Surgeries None recorded. Imaging LDCT, chest, for lung cancer screening - Please call patient to schedule. [email or web address] [facility], [address] [address], [address], [place], [address], 11/09/2024 10:36:46 LDCT, chest, for lung cancer screening - *Please call pt to schedule* 2023 024 [facility] (Radiology), [address] [place], [address], 09/10/2023 10:04:41 Medication Orders sildenafi l 100 mg tablet 2024 025 [facility]37[facility], [address], [place], [place], [id number], 12/08/2024 09:27:53 metformin 1,000 mg tablet 2024 025 [facility] #08322, [address], [place], [place], [id number], 12/08/2024 09:27:58 sildenafi l 100 mg tablet 2024 025 [facility], [address], [place], [place], [id number], 10/27/2024 14:08:44 metformin 1,000 mg tablet 2024 025 [facility], [address], [place], [place], [id number], 10/27/2024 14:08:42 sildenafi l 100 mg tablet 2023 024 [facility], [address], [place], [place], [id number], 09/25/2023 09:11:15 metformin 1,000 mg tablet 2023 024 [facility], [address], [place], [place], [id number], 09/25/2023 09:11:16 metformin 1,000 mg tablet 2023 024 [place] [facility], [address], [place], [place], [id number], 08/20/2023 09:13:15 Patient TargetsNo targets recorded. Patient InstructionsNo instructions recorded. Reason for Referral None Reported. Results Created Date Observation Date Name Description Value Unit Range Abnormal Flag Note LastModifiedBy Organization Detail LastModifiedTime 08/22/19 24 08/23/2023 LIPID PANEL , STAND LAURO cholesterol, total 106 mg/dL <200 normal Not Available [address] [address] [place], [address], 08/23/2023 12:50:14 08/22/19 24 08/23/2023 LIPID PANEL , STAND LAURO HDL cholesterol 32 mg/dL > or = 40 low Not Available [facility] [address] [place], [address], 08/23/2023 12:50:14 08/22/19 24 08/23/2023 LIPID PANEL , STAND LAURO triglyceride s 123 mg/dL <150 normal Not Available [facility] [address], [address], 08/23/2023 12:50:14 08/22/19 24 08/23/2023 LIPID PANEL , STAND LAURO LDL-choleste rol 54 mg/dL _(collin c) normal Refer ence range : <100 Dorota able range <100 mg/dL for prima ry preve ntion ; <70 mg/dL for patie nts with CHD or diabe tic patie nts with > or = 2 CHD risk facto rs. LDL-C is now calcu lated using the Vanessa bass-Hop kins calcu alfredo n, which is a valid ated novel metho d provi ding kiarra r accur acy than the Fried lavern equat ion in the estim ation of LDL-C . Vanessa bass SS et al. LINDA. 2013; 310(1 9): 2061- 2068 (http ://ed ucati on.Qu Benson BasicGov Systemss. com/f aq/FA Q164) Not Available [facility] [address] [place], [address], 08/23/2023 12:50:14 08/22/19 24 08/23/2023 LIPID PANEL , STAND LAURO chol/HDLC ratio 3.3 (calc ) <5.0 normal Not Available [facility] [address] [place], [address], 08/23/2023 12:50:14 08/22/19 24 08/23/2023 LIPID PANEL , STAND LAURO non HDL cholesterol 74 mg/dL _(collin c) <130 normal For patie nts with diabe eric plus 1 major ASCVD risk facto r, treat ing to a non-H DL-C goal of <100 mg/dL (LDL- C of <70 mg/dL ) is consi dered a thera peuti c optio n. Not Available [address] [address] [place], [address], 08/23/2023 12:50:14 08/22/19 24 08/23/2023 COMPR EHENS ANTONIETA METAB OLIC PANEL glucose 107 mg/dL 65-99 high Fasti ng refer ence inter ember For someo ne witho ut known diabe eric, a gluco se value betwe en 100 and 125 mg/dL is consi stent with predi abete s and shoul d be confi rmed with a follo w-up test. Not Available [address] [address] [place], [address], 08/23/2023 12:50:15 08/22/19 24 08/23/2023 COMPR EHENS ANTONIETA METAB OLIC PANEL urea nitrogen (BUN) 10 mg/dL 7-25 normal Not Available [employer] [address] [address] [place], [address], 08/23/2023 12:50:15 08/22/19 24 08/23/2023 COMPR EHENS ANTONIETA METAB OLIC PANEL creatinine 0.93 mg/dL 0.70-1 .28 normal Not Available [facility] [address] [address] [place], [address], 08/23/2023 12:50:15 08/22/19 24 08/23/2023 COMPR EHENS ANTONIETA METAB OLIC PANEL eGFR 88 mL/mi n/1.7 3m2 > or = 60 normal Not Available [employer] [address] [address] [place], [address], 08/23/2023 12:50:15 08/22/19 24 08/23/2023 COMPR EHENS ANTONIETA METAB OLIC PANEL BUN/creatini ne ratio SEE NOTE: (calc ) 6-22 Not Repor kaylie: BUN and Creat inine are withi n refer ence range . Not Available [address], [address], 08/23/2023 12:50:15 08/22/19 24 08/23/2023 COMPR EHENS ANTONIETA METAB OLIC PANEL sodium 134 mmol/ L 135-14 6 low Not Available [address], [address], 08/23/2023 12:50:15 08/22/19 24 08/23/2023 COMPR EHENS ANTONIETA METAB OLIC PANEL potassium 4.4 mmol/ L 3.5-5. 3 normal Not Available [address], [address], 08/23/2023 12:50:15 08/22/19 24 08/23/2023 COMPR EHENS ANTONIETA METAB OLIC PANEL chloride 99 mmol/ L 98-110 normal Not Available [address], [address], 08/23/2023 12:50:15 08/22/19 24 08/23/2023 COMPR EHENS ANTONIETA METAB OLIC PANEL carbon dioxide 28 mmol/ L 20-32 normal Not Available [address], [address], 08/23/2023 12:50:15 08/22/19 24 08/23/2023 COMPR EHENS ANTONIETA METAB OLIC PANEL calcium 9.4 mg/dL 8.6-10 .3 normal Not Available [address], [address], 08/23/2023 12:50:15 08/22/19 24 08/23/2023 COMPR EHENS ANTONIETA METAB OLIC PANEL protein, total 6.2 g/dL 6.1-8. 1 normal Not Available [address], [address], 08/23/2023 12:50:15 08/22/19 24 08/23/2023 COMPR EHENS ANTONIETA METAB OLIC PANEL albumin 4.5 g/dL 3.6-5. 1 normal Not Available [address], [address], 08/23/2023 12:50:15 08/22/19 24 08/23/2023 COMPR EHENS ANTONIETA METAB OLIC PANEL globulin 1.7 g/dL_ (calc ) 1.9-3. 7 low Not Available [employer] [address], [address], 08/23/2023 12:50:15 08/22/19 24 08/23/2023 COMPR EHENS ANTONIETA METAB OLIC PANEL albumin/glob ulin ratio 2.6 (calc ) 1.0-2. 5 high Not Available [address], [address], 08/23/2023 12:50:15 08/22/19 24 08/23/2023 COMPR EHENS ANTONIETA METAB OLIC PANEL bilirubin, total 1.4 mg/dL 0.2-1. 2 high Not Available [address], [address], 08/23/2023 12:50:15 08/22/19 24 08/23/2023 COMPR EHENS ANTONIETA METAB OLIC PANEL alkaline phosphatase 42 U/L 35-144 normal Not Available [facility] [address], [address], 08/23/2023 12:50:15 08/22/19 24 08/23/2023 COMPR EHENS ANTONIETA METAB OLIC PANEL AST 16 U/L 10-35 normal Not Available [address] [address] [place], [address], 08/23/2023 12:50:15 08/22/19 24 08/23/2023 COMPR EHENS ANTONIETA METAB OLIC PANEL ALT 12 U/L 9-46 normal Not Available [facility] [address] [place], [address], 08/23/2023 12:50:15 08/22/19 24 08/23/2023 ALBUM IN, RANDO M URINE W/O CREAT ININE albumin, urine 1.6 mg/dL see note: normal Refer ence Range : Refer ence Range Not estab lishe d Not Available [address], [address], 08/23/2023 12:50:15 08/22/19 24 08/23/2023 ALBUM IN, RANDO M URINE W/O CREAT ININE PATRICIA The ADA defin es abnor malit ies in album in excre tion as follo ws: Album inuri a Categ ory Resul t (mg/g creat inine ) Radha l to Mildl y incre ased <30 Moder ately incre ased 30-29 9 Sever nikki incre ased > OR = 300 The ADA recom mends that at least two of three speci mens colle cted withi n a 3-6 month perio d be abnor mal befor e consi christopher g a patie nt to be withi n a diagn ostic categ ory. Not Available [address] [address] [place], [address], 08/23/2023 12:50:15 08/22/19 24 08/23/2023 URINA LYSIS , COMPL ETE color YELLOW yellow normal Not Available [address] [address] [place], [address], 08/23/2023 12:50:16 08/22/19 24 08/23/2023 URINA LYSIS , COMPL ETE appearance CLEAR clear normal Not Available [facility] [id number], [place], [address], 08/23/2023 12:50:16 08/22/19 24 08/23/2023 URINA LYSIS , COMPL ETE specific gravity 1.014 1.001- 1.035 normal Not Available [address], [address], 08/23/2023 12:50:16 08/22/19 24 08/23/2023 URINA LYSIS , COMPL ETE pH 7.5 5.0-8. 0 normal Not Available [address], [address], 08/23/2023 12:50:16 08/22/19 24 08/23/2023 URINA LYSIS , COMPL ETE glucose NEGATI VE negati ve normal Not Available [address], [address], 08/23/2023 12:50:16 08/22/19 24 08/23/2023 URINA LYSIS , COMPL ETE bilirubin NEGATI VE negati ve normal Not Available [address], [address], 08/23/2023 12:50:16 08/22/19 24 08/23/2023 URINA LYSIS , COMPL ETE ketones NEGATI VE negati ve normal Not Available [address], [address], 08/23/2023 12:50:16 08/22/19 24 08/23/2023 URINA LYSIS , COMPL ETE occult blood NEGATI VE negati ve normal Not Available [address], [address], 08/23/2023 12:50:16 08/22/19 24 08/23/2023 URINA LYSIS , COMPL ETE protein NEGATI VE negati ve normal Not Available [address] [place], [address], 08/23/2023 12:50:16 08/22/19 24 08/23/2023 URINA LYSIS , COMPL ETE nitrite NEGATI VE negati ve normal Not Available [address], [address], 08/23/2023 12:50:16 08/22/19 24 08/23/2023 URINA LYSIS , COMPL ETE leukocyte esterase NEGATI VE negati ve normal Not Available [address], [address], 08/23/2023 12:50:16 08/22/19 24 08/23/2023 URINA LYSIS , COMPL ETE WBC NONE SEEN /hpf < or = 5 normal Not Available [address], [address], 08/23/2023 12:50:16 08/22/19 24 08/23/2023 URINA LYSIS , COMPL ETE RBC NONE SEEN /hpf < or = 2 normal Not Available [address], [address], 08/23/2023 12:50:16 08/22/19 24 08/23/2023 URINA LYSIS , COMPL ETE squamous epithelial cells NONE SEEN /hpf < or = 5 normal Not Available [address], [address], 08/23/2023 12:50:16 08/22/19 24 08/23/2023 URINA LYSIS , COMPL ETE bacteria NONE SEEN /hpf none seen normal Not Available [address], [address], 08/23/2023 12:50:16 08/22/19 24 08/23/2023 URINA LYSIS , COMPL ETE hyaline cast NONE SEEN /lpf none seen normal Not Available [facility] [address], [address], 08/23/2023 12:50:16 08/22/19 24 08/23/2023 CBC (INCL UDES DIFF/ PLT) white blood cell count 8.3 thous and/u L 3.8-10 .8 normal Not Available [address], [address], 08/23/2023 12:50:16 08/22/19 24 08/23/2023 CBC (INCL UDES DIFF/ PLT) red blood cell count 4.66 nikhil on/uL 4.20-5 .80 normal Not Available [address], [address], 08/23/2023 12:50:16 08/22/19 24 08/23/2023 CBC (INCL UDES DIFF/ PLT) hemoglobin 14.4 g/dL 13.2-1 7.1 normal Not Available [address], [address], 08/23/2023 12:50:16 08/22/19 24 08/23/2023 CBC (INCL UDES DIFF/ PLT) hematocrit 43.3 % 38.5-5 0.0 normal Not Available [address], [address], 08/23/2023 12:50:16 08/22/19 24 08/23/2023 CBC (INCL UDES DIFF/ PLT) MCV 92.9 fL 80.0-1 00.0 normal Not Available [address], [address], 08/23/2023 12:50:16 08/22/19 24 08/23/2023 CBC (INCL UDES DIFF/ PLT) MCH 30.9 pg 27.0-3 3.0 normal Not Available [address], [address], 08/23/2023 12:50:16 08/22/19 24 08/23/2023 CBC (INCL UDES DIFF/ PLT) MCHC 33.3 g/dL 32.0-3 6.0 normal Not Available [address], [address], 08/23/2023 12:50:16 08/22/19 24 08/23/2023 CBC (INCL UDES DIFF/ PLT) RDW 12.1 % 11.0-1 5.0 normal Not Available [address], [address], 08/23/2023 12:50:16 08/22/19 24 08/23/2023 CBC (INCL UDES DIFF/ PLT) platelet count 141 thous and/u L 140-40 0 normal Not Available [address], [address], 08/23/2023 12:50:16 08/22/19 24 08/23/2023 CBC (INCL UDES DIFF/ PLT) MPV 10.1 fL 7.5-12 .5 normal Not Available [address], [address], 08/23/2023 12:50:16 08/22/19 24 08/23/2023 CBC (INCL UDES DIFF/ PLT) absolute neutrophils 4449 cells /uL 1500-7 800 normal Not Available [address], [address], 08/23/2023 12:50:16 08/22/19 24 08/23/2023 CBC (INCL UDES DIFF/ PLT) absolute lymphocytes 3005 cells /uL 850-39 00 normal Not Available [address], [address], 08/23/2023 12:50:16 08/22/19 24 08/23/2023 CBC (INCL UDES DIFF/ PLT) absolute monocytes 498 cells /uL 200-95 0 normal Not Available [address], [address], 08/23/2023 12:50:16 08/22/19 24 08/23/2023 CBC (INCL UDES DIFF/ PLT) absolute eosinophils 299 cells /uL 15-500 normal Not Available [facility] [address], [address], 08/23/2023 12:50:16 08/22/19 24 08/23/2023 CBC (INCL UDES DIFF/ PLT) absolute basophils 50 cells /uL 0-200 normal Not Available [facility] [address], [address], 08/23/2023 12:50:16 08/22/19 24 08/23/2023 CBC (INCL UDES DIFF/ PLT) neutrophils 53.6 % normal Not Available [facility] [address], [address], 08/23/2023 12:50:16 08/22/19 24 08/23/2023 CBC (INCL UDES DIFF/ PLT) lymphocytes 36.2 % normal Not Available [address], [address], 08/23/2023 12:50:16 08/22/19 24 08/23/2023 CBC (INCL UDES DIFF/ PLT) monocytes 6.0 % normal Not Available [facility] [address], [address], 08/23/2023 12:50:16 08/22/19 24 08/23/2023 CBC (INCL UDES DIFF/ PLT) eosinophils 3.6 % normal Not Available [address], [address], 08/23/2023 12:50:16 08/22/19 24 08/23/2023 CBC (INCL UDES DIFF/ PLT) basophils 0.6 % normal Not Available [facility] [address] [place], [address], 08/23/2023 12:50:16 08/22/19 24 08/23/2023 PSA, TOTAL PSA, total 0.27 NG/mL < or = 4.00 normal The total PSA value from this assay syste m is stand ardiz ed again st the WHO stand lauro. The test resul t will be appro ximat nikki 20% lower when jossie red to the equim olar- stand ardiz ed total PSA (Go man Coult er). Jossie rison of seria l PSA resul ts shoul d be inter prete d with this fact in mind. This test was perfo rmed using the [employer] chemi lumin escen t metho d. Value s obtai rebekah from diffe rent assay metho ds canno t be used inter sheets eably . PSA level s, regar dless of value , shoul d not be inter prete d as absol [place] evide nce of the prese nce or absen ce of disea se. Not Available [employer] [facility] [id number] [place], [address], 08/23/2023 12:50:17 08/22/19 24 08/23/2023 TSH W/REF SANDRA TO FT4 TSH w/reflex to FT4 4.16 mIU/L 0.40-4 .50 normal Not Available [employer] [facility] [id number] [place] [address], [id number], 08/23/2023 12:50:17 08/22/19 24 08/23/2023 HEMOG LOBIN A1C hemoglobin A1C 6.3 %_of_ total _HGB <5.7 high For someo ne witho ut known diabe eric, a hemog lobin A1c value betwe en 5.7% and 6.4% is consi stent with predi abete s and shoul d be confi rmed with a follo w-up test. For someo ne with known diabe eric, a value <7% indic ates that their diabe eric is well contr olled . A1c targe ts shoul d be indiv idual ized based on durat ion of diabe eric, age, comor bid condi tions , and other consi derat ions. This assay resul t is consi stent with an incre ased risk of diabe eric. Curre ntly, no conse nsus exist s regar ding use of hemog lobin A1c for diagn osis of diabe eric for child neha. This test was perfo rmed on the Diaz reg c503 platf orm. Effec tive , a kortney vasquez in test platf orms from the Abbot t Archi tect to the Diaz reg c503 may have shift ed HbA1c resul ts jossie red to histo rical resul ts. Based on labor atory valid ation testi ng condu cted at [employer] , the Diaz platf orm relat antonieta to the Abbot t platf orm had an avera ge incre ase in HbA1c value of < or = 0.3%. This diffe rence is withi n accep kaylie varia bilit y estab lishe d by the Natio nal Glyco hemog lobin Stand ardiz ation Progr am. Note that not all indiv idual s will have had a shift in their resul ts and direc t jossie rison s betwe en histo rical and curre nt resul ts for testi ng condu cted on diffe rent platf orms is not recom andrew d. Not Available [facility] [place] [address] [place], [address], 08/23/2023 12:50:18 10/29/1910/29/2024 LIPID PANEL , STAND LAURO cholesterol, total 105 mg/dL <200 normal Not Available [facility] [place] [address] [place], [address], 10/29/2024 06:47:34 10/29/19 25 10/29/2024 LIPID PANEL , STAND LAURO HDL cholesterol 35 mg/dL > or = 40 low Not Available [facility] [place] [address] [place], [address], 10/29/2024 06:47:34 10/29/1910/29/2024 LIPID PANEL , STAND LAURO triglyceride s 120 mg/dL <150 normal Not Available [facility] [id number] [place] [address], [address], 10/29/2024 06:47:34 10/29/1910/29/2024 LIPID PANEL , STAND LAURO LDL-choleste rol 49 mg/dL _(collin c) normal Refer ence range : <100 Dorota able range <100 mg/dL for prima ry preve ntion ; <70 mg/dL for patie nts with CHD or diabe tic patie nts with > or = 2 CHD risk facto rs. LDL-C is now calcu lated using the Vanessa n-Hop kins calcu alfredo n, which is a valid ated novel metho d provi ding kiarra r accur acy than the Fried lavern equat ion in the estim ation of LDL-C . Vanessa bass SS et al. LINDA. 2013; 310(1 9): 2061- 2068 (http ://ed ucati on.Digital Message Display dungE96. Connexient/f aq/FA Q164) Not Available [facility] [address] [place], [address], 10/29/2024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
[2025-02-06 08:30] LABS: Hematocrit 42.7 % (42.0-52.0); Hemoglobin 14.5 g/dL (14.0-18.0); Immature Granulocyte Percent A 0.3 % (0-0.5); Lymphocytes Absolute Auto 2.47 K/mm3 (0.9-3.2); Mean Corpuscular HGB Conc 34.0 g/dl (32-36); Mean Corpuscular Hemoglobin 31.1 pg (26-34); Mean Corpuscular Volume 91.6 fl (80-100); Nucleated Red Blood Cells Absolute Auto 0.000 K/mm3 (0.0-0.012); Nucleated Red Blood Cells Perc 0.0 % (0.0-0.2); Platelet Count Result 141 k/mm3 (150-375); Red Blood Count 4.66 M/mm3 (4.6-6.20); White Blood Count 9.4 K/mm3 (4.5-10.0)
--- NOTE | 2025-02-06 08:44 | WPDHPUPDATE1 ---
History and Physical Update Update Date/Time: 02/06/25 08:44 History and Physical has been reviewed, including an updated exam of the patient. There are NO changes in the patient's condition. Risks, benefits, and alternatives have been discussed and questions answered. Patient agrees to proceed with procedure.
--- NOTE | 2025-02-06 08:45 | WPDMODSED ---
Moderate Sedation Note-Pt Data Patient Data Allergies Allergy/AdvReac Type Severity Reaction Status Date / Time No Known Allergies Allergy Verified 02/06/25 08:16 Home Medications ?Medication ?Instructions ?Recorded ?Confirmed ?Type aspirin 81 mg tablet,delayed 81 mg PO DAILY 06/28/21 02/06/25 History release (Adult Low Dose Aspirin) metformin 1,000 mg tablet 1,000 mg PO BID 06/28/21 02/05/25 History ezetimibe 10 mg tablet 10 mg PO DAILY 01/02/23 02/06/25 History rosuvastatin 20 mg tablet 20 mg PO DAILY 01/02/23 02/06/25 History metoprolol tartrate 50 mg tablet 25 mg PO TID 02/05/25 02/06/25 History nitroglycerin 0.4 mg sublingual 0.4 mg sublingual Q5M PRN chest 02/05/25 02/05/25 History tablet pain Sedation/Anesthesia: No previous sedation/anesthesia problems (including family history). [facility] Past Medical History Medical History CAD (coronary artery disease) COPD (chronic obstructive pulmonary disease) Diabetes type 2, controlled History of heart attack Hypertension Rotator cuff tendonitis Surgical History Surgical History H/O cardiac catheterization Broken Heart, 1994, Dr. Gillespie Heart attack (stent), 1998, Dr. Barnett Social History Social History (Updated 11/27/23 @ 08:08 by SIMONE Fish) Smoking packs per day: 0.75 Smoking cigarettes per day: 15.0 Years smoked: 50 Smoking pack-years: 37.50 Smoking status: Current every day smoker Tobacco type: cigarettes Second hand tobacco smoke exposure: No Alcohol intake: never Drinks per week: 6 Substance use: never Substance use type: does not use Lack of Transportation: No Lack of Food: Never True Current Housing: I Have Housing Concerned About Future Housing: Decline to Answer Difficulty Paying Gas/Electric Bills: Decline to Answer Difficulty Paying for Meds: Decline to Answer Currently Unemployed: Decline to Answer Education: Decline to Answer Difficulty w/ Childcare or Family Care: Decline to Answer Living arrangements: with family Occupation/Education: retired 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 [employer] Gender identity (if verbalized by the patient): Male Spiritual care concerns: No Mod Sed Physical Exam Physical Exam Pre Procedural Exam: Normal: Lungs, Heart Size, Heart Rate and Heart Rhythm Hours since solid foods: 12 Hours since liquid intake: 12 Mallampati Classification: class II Internal Medicine - PN: Obj Da Vital Signs Vital Signs: Vital Signs - 24 hr 02/06/25 08:18 Temperature 36.5 C Pulse Rate 66 Respiratory Rate 17 Blood Pressure 153/87 H Pulse Oximetry 100 Oxygen Delivery Room Air Labs 02/06/25 08:25 02/06/25 08:25 Labs: Laboratory Results - last 24 hr 02/06/25 08:25 WBC 9.4 RBC 4.66 Hgb 14.5 Hct 42.7 MCV 91.6 MCH 31.1 MCHC 34.0 RDW 11.9 Plt Count 141 L MPV 9.4 Immature Gran % (Auto) 0.3 Neut % (Auto) 65.2 Lymph % (Auto) 26.4 [place] % (Auto) 5.4 Eos % (Auto) 2.2 Baso % (Auto) 0.5 Lymph # (Auto) 2.47 [place] # (Auto) 0.5 Eos # (Auto) 0.2 Baso # (Auto) 0.1 Abs Immat Gran (auto) 0.03 Absolute Neuts (auto) 6.1 Absolute Nucleated RBC 0.000 Nucleated RBC % 0.0 ASA Classification/Sedation ASA Classification/Sedation ASA Class: III Emergent: No Risks: Risks, benefits and alternatives explained and patient/family accepted plan for sedation. Patient re-evaluated immediately prior to sedation.
[2025-02-06 08:54] LABS: Anion Gap 4 mmol/L (4-12); Blood Urea Nitrogen 10 mg/dL (9-20); Calcium 9.2 mg/dL (8.4-10.2); Carbon Dioxide 29 mmol/L (22-30); Chloride 101 mmol/L (98-107); Estimated CRCL calculation 76 ml/min; Estimated Glomerular Filt Rate > 60; Glucose 118 mg/dL (65-110); Potassium 4.1 mmol/L (3.4-5.0); Sodium 134 mmol/L (137-145)
--- NOTE | 2025-02-06 11:35 | WPDCARDPROC ---
Cardiac Cath Procedure Note Date of procedure:: 02/06/25 Performing physician:: CATHETERIZATION LABORATORY REPORT Procedure Date: 02/06/2025 Referring Physician: Dr. Hercules Anesthesia: Versed and Fentanyl were ordered and given in my presence at 1048, procedure ended at 1131. Supervision of nurse, Savannah Levin monitored moderate sedation with 2mg Versed and 150mcg Fentanyl was provided for 43 minutes. Pre-op Diagnosis: abnormal stress test and new onset cardiomyopathy Post-op Diagnosis: abnormal stress test and new onset cardiomyopathy Procedure(s): Left heart catheterization with coronary angiography percutaneous coronary intervention intravascular ultrasound Access Site: Right radial artery Brief History and Clinical Indications: 74-year-old man with CAD status post PCI, hypertension, hyperlipidemia, and active tobacco abuse is who had been experiencing reassess shortness of breath found to have new onset systolic cardiomyopathy an abnormal stress test for which cardiac catheterization with possible PCI was recommended prior to EP evaluation for ICD implantation. All risks, benefits and alternatives to left heart catheterization with or without percutaneous coronary intervention was discussed at length with the patient. Risk of complications including but not limited to bleeding, infection, arrhythmia, stroke, worsening kidney function, blood loss, groin hematoma, limb loss, emergency coronary artery bypass grafting, and even were discussed with the patient and all questions were answered. The patient understood and wished to proceed. Time out called, patient name, date of , medical record number, allergies, procedure performed, identify Pathology Laboratory Aides Teacher, patient and staff member concurred with accurate data, procedure carried on. Findings: LEFT HEART CATHETERIZATION FINDINGS: 1. Left main: The left main coronary artery is widely patent without any significant obstructive disease. 2. Left anterior descending: The LAD and the diagonal branches have mild luminal irregularities without any significant obstructive angiographic disease. 3. Left circumflex: The left circumflex artery is a nondominant vessel that provides 3 OM branches. The left circumflex as it leads into the OM3 branch has 50-60% stenosis. The remainder of the system has diffuse 10-20% stenosis. 4. Right coronary artery: The RCA is a large dominant vessel. The proximal to mid body of has a stent with 20-40% ISR. The distal RCA gives off to right PDAs. The segment of the distal RCA between the 2 RPDAs has a 90% stenosis. The right posterolateral branch branches off into [address] branches. The second RL branch has a 80% stenosis; however, the vessel diameter is <2mm and not amenable for PCI. 5. Left ventricle: A. End-diastolic pressure 17 mmHg. B. LV gram deferred. C. No significant gradient across aortic valve on catheter pullback. 6. Opening AO pressure 119/53 and closing AO pressure 122/56 Description of Procedure: Informed consent signed and placed in the chart. Patient transferred to clinical genetics laboratory chief room. Prepped and draped in usual sterile fashion. 2% lidocaine injected subcutaneously in right wrist area. 22-gauge venipuncture catheter used to access the right radial artery with the Seldinger technique. 6-FR slender sheath placed in right radial artery. Nitroglycerin 200mcg, Verapamil 2.5mg, and Heparin 5000U was given intraarterial through the sheath. J wire advanced under fluoroscopy. A 5F Ultra diagnostic catheter was used to cross into the left ventricle. After measurement of LVEDP and aortic valve gradient, it was used to engage the Left Main Coronary Artery and Right Coronary Artery. Multiple orthogonal angiogram obtained and reviewed. Procedure Description for PCI: Heparin was used for anticoagulation (ACT maintained above 250) Patient loaded with heparin at 70 units/kg. 6F JR4 guide catheter was used to intubate the right coronary artery. 0.014 Runthrough coronary wire was passed in to the distal rPL branch. The lesion was pre-dilated with a 2.0 x 10mm balloon inflated to 10atm. A 2.5 x 15mm [place] JARRELL was successfully deployed into distal RCA. IVUS was used and after evaluation of images, a 3.0 x 8mm NC balloon was used to optimize the stent; inflated to 16atm. Nitroglycerin 300mcg IC was delivered and all intracoronary equipment was then removed under fluoroscopy. Follow-up angiograms showed an excellent result. Pre-procedure - HARRIS 3 flow Post-procedure - HARRIS 3 flow No angiographic complications identified. Assessment: Successful IVUS guided PCI to distal RCA with 2.5 x 15mm [place] JARRELL; post dilated with 3.0 x 8mm NC to 16atm with excellent results. Post Operative Condition: Stable No significant blood loss Disposition: Home Plan: DAPT for 1 year followed by ASA indefinitely. Recommend starting GDMT and repeating TTE in 1-2 months. Continue aggressive medical therapy for remaining CAD and risk factor modification for lower cardiovascular risk. Tobacco cessation discussed with patient. The above findings were discussed with the referring physician. Ander Fontanez Interventional Cardiology
[2025-02-06] MEDS: SODIUM CHLORIDE 0.9% IV 1,000 ML 125 ML IV CONT (12:15)
== END 2025-02-06 16:18 | disposition home or self-care (01) ==
PROVIDERS: PCP Family Medicine; Visit Provider Internal Medicine
PROC: 4A023N7 Measurement of Cardiac Sampling and Pressure, Left Heart, Percutaneous Approach (ICD-10-PCS; CPT 93452; principal; 2025-02-06 10:00)
DX: R94.39 Abnormal result of other cardiovascular function study (principal); I25.10 Atherosclerotic heart disease of native coronary artery without angina pectoris; E78.5 Hyperlipidemia, unspecified; E11.69 Type 2 diabetes mellitus with other specified complication; J44.9 Chronic obstructive pulmonary disease, unspecified; I49.3 Ventricular premature depolarization; I25.2 Old myocardial infarction; F17.210 Nicotine dependence, cigarettes, uncomplicated; Z79.82 Long term (current) use of aspirin; Z79.84 Long term (current) use of oral hypoglycemic drugs; Z95.5 Presence of coronary angioplasty implant and graft; Z80.9 Family history of malignant neoplasm, unspecified
CPT/HCPCS: 36415; 80048; 85025; 92978; 93458; A9270; C1725; C1753; C1769; C1874; C1887; C1894; C9600; J0461; J1644; J2003; J2250; J2305; J3010; J7030; J7040